=== PATIENT | male | born 1955 | race Caucasian/White ===

== ENCOUNTER 2022-10-13 14:50 | Outpatient (REF) | payer MEDICARE, SELFPAY ==
[2022-10-13 15:08] LABS: MANUAL DIFF FLAG NO
[2022-10-13 15:16] LABS: Basophils Percent Auto 0.4 % (0-2); Eosinophils Absolute Auto 0.2 X10*3/uL (0.0-0.4); Eosinophils Percent Auto 2.3 % (0-4); Hematocrit 45.8 % (42.0-52.0); Hemoglobin 15.1 g/dl (14.0-18.0); Imm Gran Abs Auto 0.03 X10*3/uL (0.00-0.03); Imm Gran Pct Auto 0.4 % (0.0-0.4); Lymphocytes Absolute Auto 1.6 X10*3/uL (1.2-4.9); Lymphocytes Percent Auto 22.1 % (20-40); Mean Corpuscular Hemoglobin 27.5 pg (27.0-33.0); Mean Corpuscular Volume 83.3 fL (80.0-98.0); Mean Platelet Volume 8.9 fL (9.4-12.4); Monocytes Absolute Auto 0.6 X10*3/uL (0.1-1.2); Monocytes Percent Auto 8.7 % (2-11); Neutrophils Absolute Auto 4.9 x10*3/uL (2.0-8.3); Neutrophils Percent Auto 66.1 % (45-73); Platelet Count 196 X10*3/uL (160-400); Red Cell Distribution Width 12.6 % (11.0-16.0); White Blood Count 7.4 X10*3/uL (4.8-10.8)
[2022-10-13 15:53] LABS: Erythrocyte Sedimentation Rate 9 MM/HR (0-15)
[2022-10-13 16:02] LABS: Alanine Aminotransferase 28 U/L (0-40); Albumin Level 4.5 g/dL (3.5-5.0); Alkaline Phosphatase 87 U/L (39-117); Anion Gap 13 (12-20); Aspartate Amino Transferase 19 U/L (5-37); Bilirubin Total 0.4 mg/dL (0.0-1.0); Blood Urea Nitrogen 20 mg/dL (9-16); Calcium 9.5 mg/dL (8.4-10.2); Carbon Dioxide 27 mmol/L (22-29); Chloride 102 mmol/L (96-108); Estimated Glomerular Filt Rate 55; Glucose Random 126 mg/dL (60-115); Potassium 4.7 mmol/L (3.3-5.1); Sodium 137 mmol/L (135-145); TSH reflex Free T4 3.25 uIU/mL (0.32-4.0); Total Protein 7.4 g/dL (6.5-8.0)
[2022-10-13 16:17] LABS: Vitamin B12 366 pg/mL (200-900)
[2022-10-14 08:30] LABS: Syphilis Screen Nonreactive (Nonreactive)
== END 2022-10-13 14:51 | disposition home or self-care (01) ==
LOC: HO.LAB 14:50
PROVIDERS: PCP Physician Assistant; Visit Provider Nurse Practitioner Family
DX: R41.3 Other amnesia (principal); E11.9 Type 2 diabetes mellitus without complications; I10 Essential (primary) hypertension; G47.33 Obstructive sleep apnea (adult) (pediatric)
CPT/HCPCS: 36415; 80053; 82607; 82746; 84443; 85025; 85652; 86780; 99202

== ENCOUNTER 2022-10-22 17:44 | Outpatient (REF) | payer MEDICARE, SELFPAY | END 2022-10-22 17:45 | disposition home or self-care (01) | LOC: HO.MRI 17:44 | PROVIDERS: Visit Provider Nurse Practitioner Family | DX: Z13.89 Encounter for screening for other disorder (principal) ==

== ENCOUNTER 2024-12-27 15:00 | Outpatient (AMB) | payer MEDICARE, SELFPAY ==
--- NOTE | 2024-12-27 15:21 | HO.NEPHOV ---
Vital Signs 12/27/24 15:23 Height 5 ft 6 in Weight 247 lb 8 oz BMI 39.9 BP 120/62 Blood Pressure Location Rt brachial Position Sitting Pulse 93 Pulse Source Pulse Oximeter Pulse Oximetry (%) 96 Oxygen Delivery Method Room Air Intake Visit Reasons: Previous patient/ Conf Needle Maker Required: No Accompanied by: Self / Same As Patient Allergies No Known Allergies Allergy (Verified 12/27/24 15:23) HPI Comments Details: I had the privilege of seeing Andrés in follow up of his acquired solitary kidney ( had left nephrectomy in 2019) on a back drop of hypertension and diabetes mellitus. His blood pressure is at goal on current medications. He has not lost any significant weight. He is not on Jardiance but not on any ACEI/ARB. He tries to maintain good hydration and avoids NSAID's if possible. He denies nausea, vomiting, diarrhea, SOB or edema. His last A1c was 9.0 with some proteinuria . His last serum creatinine was 1.27. There were no specific systemic complaints at the time of this office visit. [facility] Surgical History History of nephrectomy Family History Father Pancreatic cancer Social History Alcohol intake: current Patient Tobacco Use Status: Former Tobacco user Cigarette Packs Per Day: 0.50 Review of Systems Const All systems reviewed & are unremarkable except as noted in HPI and below Physical Exam Vital Signs: Last Vital Signs Pulse 93 12/27/24 15:23 BP 120/62 12/27/24 15:23 Pulse Ox 96 12/27/24 15:23 Oxygen Delivery Method Room Air 12/27/24 15:23 BMI result Body Mass Index 39.9 Const General: comfortable and no acute distress Orientation/consciousness: patient oriented x3 HEENT Head: Yes normocephalic Mouth: Normal oral and palatal mucosa present Eyes EOM: EOMs intact bilaterally Neck Neck: Yes supple Resp Auscultation: clear to auscultation bilaterally Cardio Jugular venous distension: no JVD Rate: regular rate GI Palpation (GI): Soft to palpation Auscultation: normal bowel sounds General: Yes no CVA tenderness Back/Spine/Pelvis Back: no CVA tenderness Skin General skin exam: no rashes or lesions noted Neuro General: patient oriented x3 and moves all extremities Extrem General: Yes no pedal edema Assessment & Plan Assessment & Plan (1) HTN (hypertension): Code(s): I10 - Essential (primary) hypertension Category: Medical Qualifiers: Hypertension type: primary hypertension Qualified Code(s): I10 - Essential (primary) hypertension (2) Solitary kidney, acquired: Code(s): Z90.5 - Acquired absence of kidney Category: Medical (3) Proteinuria: Code(s): R80.9 - Proteinuria, unspecified Category: Medical Qualifiers: Proteinuria type: other Qualified Code(s): R80.8 - Other proteinuria Plan He has acquired solitary kidney following nephrectomy in 2020. He needs to loose weight and needs to have better blood sugar control. He is not on any ACEI/ARB. He is at risk for hyperfiltration. I started him on Jardiance which I plan to maximize at next visit. If his serum creatinine and K permits and if there are no other contraindication, I plan to start him on ACEI at next visit. He should maintain good hydration and avoid NSAID's. Follow up blood work ordered. Orders: Orders Creatinine 3 Months I10 - Essential (primary) hypertension, Z90.5 - Acquired absence of kidney Blood Urea Nitrogen 3 Months I10 - Essential (primary) hypertension, Z90.5 - Acquired absence of kidney Hemoglobin A1c 3 Months I10 - Essential (primary) hypertension, Z90.5 - Acquired absence of kidney Electrolytes 3 Months I10 - Essential (primary) hypertension, Z90.5 - Acquired absence of kidney Medications: New empagliflozin (Jardiance) 10 mg PO DAILY 30 tabs 4RF cholecalciferol (vitamin D3) 50 mcg PO DAILY 30 caps 6RF Coding Level of Care Code Est Pt Level 4 (89442) Diagnoses Primary hypertension I10 Hypertension type: primary hypertension Solitary kidney, acquired Z90.5 Other proteinuria R80.8 Proteinuria type: other
[2024-12-27 15:23] VITALS: BP 120/62; PULSE 93; O2SAT 96; BMI 39.9
--- OUTSIDE RECORDS SUMMARY | 2024-12-27 16:09 | XMS_ITS | Encounter Summary ---
Author Organization [facility] Address [address] [facility] [address] [place] [address] Phone Care Team Providers Care Rim Turning Machine Operator Name Role Phone Stephanie Willoughby PA-C Primary Care Provider + Reason for Visit * Reason Comments Med Refill Encounter Details Date Type Department Care Team ([facility] st Contact Info) Description 05/14/2024 Refill [facility] [address] [facility] [address] [place] [phone] Fabrizio Driver MD [address] [facility] [address] [place] [phone] Hypertension; Acquired absence of kidney Social History Tobacco Use Types Packs/Day Years Used Date Smoking Tobacco: Former Smokeless Tobacco: Never Alcohol Use Standard Drinks/Week Comments Yes 0 (1 standard drink = 0.6 oz pur e alcohol) Sex and Gender Information Value Date Recorded Sex Assigned at Not on file Legal Sex Male 4:59 PM EST Gender Identity Not on file Sexual Orientation Not on file documented as of this encounter Plan of Treatment Not on file documented as of this encounter Visit Diagnoses Diagnosis Hypertension Acquired absence of kidney documented in this encounter Care Teams Rim Turning Machine Operator Relationship Specialty Start Date End Date Stephanie Willoughby PA-C [address] [place] [address] PCP - General Physician Hardwood Sawyer 01/09/21 documented as of this encounter
--- OUTSIDE RECORDS SUMMARY | 2024-12-27 16:09 | XMS_ITS | Encounter Summary ---
Author Organization [facility] Address [address] [place] [address] Care Team Providers Care Automation Controls Engineer Name Role Phone Stephanie Willoughby Primary Care Provider + Reason for Visit * Reason Comments Pain Encounter Details Date Type Department Care Team (Late st Contact Info) Description 12/21/2024 3:30 PM EST Office Visit Orthopedic Surgery - [place] [address] [facility] [address] [place] [phone] Radha Serrano PA [address] [address] [place] [phone] Left carpal tunnel syndrome (Primary Dx); Mallet finger of right hand; Arthritis of right hand Social History Tobacco Use Types Packs/Day Years Used Date Smoking Tobacco: Former Cigarettes Q uit: 11/15/1999 Smokeless Tobacco: Never Alcohol Use Standard Drinks/Week Comments Yes 0 (1 standard drink = 0.6 oz pur e alcohol) Sex and Gender Information Value Date Recorded Sex Assigned at Not on file Legal Sex Male 6:57 PM EST Gender Identity Not on file Sexual Orientation Not on file documented as of this encounter Progress Notes * SAVITA Spears - 12/21/2024 3:30 PM EST CHIEF COMPLAINT: Pain of the Right Middle Finger had concerns including Pain of the Right Middle Finger. IDENTIFIER: Marco Zavaleta is a 69 y.o. old male SUBJECTIVE: Marco Zavaleta is here for follow up on 08/20/2025 for right long finger pain after injury 2 to 3 weeks ago, right hand pain and stiffness, and left hand numbness tingling and pain. Patient has had right carpal tunnel surgery and right long finger A1 madhuri release with Dr. De Leon in 2022. He is doing okay there. He does report some mild residual numbness at the radial side of the right ring finger. The biggest issue has been some stiffness and pain in his hands in the morning worse on the right side for that ongoing for the past couple months. Then about 2 to 3 weeks ago he fell and jammed hisright long finger with a resultant mallet deformity. He tried a little AlumaFoam brace. He is having mild pain in that area. He also has been having increased numbness tingling in the left hand thumbindex and long finger that can be pretty constant. Is not waking him up at night. She has had no treatment for this as far as bracing cortisone injections or surgery. He does have diabetes and his last hemoglobin A1c a couple weeks ago was 9. PAST MEDICAL/SURGICAL HISTORY: Patient Active Problem List Diagnosis Date Noted Tear of biceps tendon 10/06/2024 Right carpal tunnel syndrome 05/05/2022 Trigger middle finger of right hand 05/05/2022 Carpal tunnel syndrome on both sides 08/20/2020 Renal cell carcinoma, left ([facility]) 08/12/2020 Neck pain 11/27/2019 Tear of biceps muscle 05/09/2019 Benign localized hyperplasia of prostate with urinary obstruction 07/02/2017 BPH associated with nocturia 07/02/2017 GERD (gastroesophageal reflux disease) 07/02/2017 Hyperlipidemia 07/02/2017 Hypertension 07/02/2017 Obstructive sleep apnea 07/02/2017 Type 2 diabetes mellitus without complication ([facility]) 07/02/2017 DM type 2 (diabetes mellitus, type 2) ([facility]) 07/02/2017 Arthritis 04/22/2016 Herpes simplex type 1 infection 04/22/2016 Eczema 05/30/2013 Past Surgical History: Procedure Laterality Date NEPHRECTOMY Left 11/01/2020 PROCEDURE: HISTORICAL NEPHRECTOMY; COMMENT: due renal cell carcinoma - Dr. Hampton OTHER SURGICAL HISTORY Left 08/12/2020 PROCEDURE: CT RENAL BIOPSY PRQ TROCAR/NEEDLE; COMMENT: most likely renal cell carcinoma MEDICATIONS DISCONTINUED/REORDERED: There are no discontinued medications. ACTIVE MEDICATIONS: Outpatient Medications Marked as Taking for the 12/21/24 encounter (Office Visit) with SAVITA Spears Medication Sig Dispense Refill amLODIPine (NORVASC) 5 mg tablet TAKE 1 TABLET BY MOUTH EVERY DAY 90 tablet 3 atorvastatin (LIPITOR) 20 mg tablet Take 1 tablet (20 mg total) by mouth 1 (one) time each day. FREESTYLE LANCETS MISC 1 Each by Does not apply route 2 times daily. glipiZIDE (GLUCOTROL XL) 5 mg 24 hr tablet Take 1 tablet (5 mg total) by mouth 1 (one) time each day. tamsulosin (FLOMAX) 0.4 mg 24 hr capsule Take 1 Capsule by mouth daily. Take 30 mins after same meal every day. ALLERGIES: No Known Allergies PHYSICAL EXAM: Visit Vitals Smoking Status Former APPEARANCE: Alert and in no acute distress EYES: conjunctivae and sclerae normal EXTREMITIES: Extremities warm and well perfused without clubbing, cyanosis, or edema Left hand mild thenar wasting. 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 Hehad a positive Tinel's, Phalen's and Durkan's test on the left. He can make a light fist. Hypothenar, thenar interosseous musculature intact. On the right he has diffuse arthritic changes at metacarpal phalangeal joints PIP and DIP joints ofall fingers. He can make a light fist, there is some mild stiffness. No rebecca triggering. Mild tenderness to palpation over A1 madhuri of right small and index finger. He does have Dupuytren's nodules and slight pitting at the palm of the hand the axis of the long and ring finger. But no contracture. Right long finger he has Heberden's nodules but also a flexion deformity at the DIP joint that can be passively corrected to neutral. VASCULAR:well perfused with normal pulses in the distal extremities and no peripheral edema noted NEURO: Awake, alert and oriented SKIN: Skin color, texture, turgor normal. No rashes or lesions. PSYCH: does not appear depressed or anxious and oriented to time, place and person LABS/IMAGING: Lab Results Component Value Date HGBA1C 9.0 (H) 12/11/2024 Xrays reviewed: X-rays reviewed of the right hand in March 2024 showed diffuse moderate arthritic changes at metacarpal phalangeal joints, PIP joints and DIP joints of all fingers on the right. As wellas moderate to severe right thumb basal joint arthritis. Did get an x-ray of the right long finger today to check for bony mallet. XR Fingers 2+ Views Right Date of Visit: 12/21/2024 Reason for visit: Right long finger injury Views: AP, lateral oblique right long finger Comparison: Previous x-rays of the right hand done last year. Findings: Right long finger on the lateral there is an avulsion fragment seen off the dorsum of the DIP joint consistent with bony mallet. Mild flexion deformity Impression: Right bony mallet middle finger IMPRESSION: No diagnosis found. PLAN: The details of the visit were reviewed with the patient. Pertinent history, and objective findings were reviewed, along with the diagnoses: Left carpal tunnel syndrome. I discussed with patient treatment options for carpal tunnel. Discussed bracing cortisone injections and lastly surgery. He does wish to consider surgery but I did state to hold off to get his hemoglobin A1c down to under 8. Because of the high blood sugar also decided to hold off on cortisone injection today. This provided witha left carpal tunnel brace. I will see him back in 2 months time for clinical recheck if he has nothad a repeat hemoglobin A1c we will get labs to see where his blood sugars are at. When he gets down to under [address] De Leon about starting scheduling process for left carpal tunnel release. For the right hand arthritis I did discuss conservative treatment with Tylenol topical creams heat and exercises. He cannot take NSAIDs due to his kidneys. Far as the right long finger bony mallet I discussed conservative treatment splinting and if it wasstill painful could consider DIP joint fusion. He is having minimal pain therefore no further treatment for the mallet finger. Also patient back in 2 months time. Marco Zavaleta acknowledges understanding of the above plan and agrees to follow recommendations and/or take medications as prescribed. No orders of the defined types were placed in this encounter. @ELECSIG@ documented in this encounter Plan of Treatment Upcoming Encounters Date Type Department Care Team (Late st Contact Info) Description 01/16/2025 3:00 PM EST Office Visit Internal Medicine - [place] [address] [place] [address] Stephanie Willoughby PA [address] [place] [address] 02/19/2025 3:00 PM EDT Office Visit Orthopedic Surgery - [place] [address] [facility] [address] [place] [phone] Radha Serrano PA [address] [facility] [address] [place] [phone] documented as of this encounter Visit Diagnoses Diagnosis Left carpal tunnel syndrome- Primary Carpal tunnel syndrome Mallet finger of right hand Arthritis of right hand documented in this encounter Care Teams Automation Controls Engineer Relationship Specialty Start Date End Date Stephanie Willoughby PA [address] [facility] [address] [place] [address] PCP - General Primary Care 12/11/24 documented as of this encounter
--- OUTSIDE RECORDS SUMMARY | 2024-12-27 16:09 | XMS_ITS | Clinical Summary ---
Author Organization [facility] Address [address] [phone] Phone Care Team Providers Care Installation Manager Name Role Phone Stephanie Willoughby PA-C Primary Care Provider + Allergies No known active allergies Medications atorvastatin (LIPITOR) 20 MG tablet Take 20 mg by mouth 1 (one) time each day Active tamsulosin (FLOMAX) 0.4 MG 24 hr capsule if needed 08/21/2022 Activ e amLODIPine (NORVASC) 5 MG tablet TAKE 1 TABLET BY MOUTH 1 TIME EACH DAY. 90 tablet 3 11/22/2022 Active glipiZIDE (GLUCOTROL XL) 5 MG 24 hr tabletIndication s:Hypertension,A cquired absence of kidney TAKE 1 TABLET BY MOUTH 1 TIME EACH DAY. 90 tablet 1 08/20/2024 Active Active Problems Problem Noted Date Diagnosed Date Acquired absence of kidney 01/09/2021 Hypertension 01/09/2021 History of radical nephrectomy 01/09/2021 Encounters Date Type Department Care Team Description 12/11/2024 Orders Only [facility]. [address] [phone] Fabrizio Driver MD from Last 3 Months Family History Medical History Relation Comments Cancer Father Diabetes Mother Relation Status Comments Father Mother Social History Tobacco Use Types Packs/Day Years Used Date Smoking Tobacco: Former Smokeless Tobacco: Never Tobacco Cessation:Counseling Given: Not Answered Alcohol Use Standard Drinks/Week Comments Yes 0 (1 standard drink = 0.6 oz pur e alcohol) Sex and Gender Information Value Date Recorded Sex Assigned at Not on file Legal Sex Male 4:59 PM EST Gender Identity Not on file Sexual Orientation Not on file Last Filed Vital Signs Vital Sign Reading Time Taken Comments Blood Pressure 126/70 12/24/2023 8:33 AM EST Pulse 75 12/24/2023 8:33 AM EST Temperature - - Respiratory Rate - - Oxygen Saturation 94% 12/24/2023 8:33 AM EST Inhaled Oxygen Concentration - - Weight 111 kg (245 lb) 12/24/2023 8:33 AM EST Height - - Body Mass Index - - Plan of Treatment Health Maintenance Due Date Last Done Comments Pneumococcal Vaccine: 65+ Years (1 of 2 - PCV) 1961 Colorectal Cancer Screening: Annual FOBT 2004 Colorectal Cancer Screening: Colonoscopy 2004 Colorectal Cancer Screening: Sigmoidoscopy 2004 Influenza Vaccine (#1) 2024 , 07/24/2023, 08/21/2019, Additional history exists Diabetes: Ophthalmology Exam 12/21/2024 Diabetes: Pedal Pulse Checked 12/21/2024 Diabetes: Sensory Foot Exam 12/21/2024 Diabetes: Visual Foot Exam 12/21/2024 Diabetes: Hemoglobin A1C 03/11/2025 12/11/2024, 11/16 Hepatitis B Vaccine Aged Out No longe r eligible based on patient's age to complete this topic Procedures Procedure Name Priority Date/Time Associated Diagnosis Comments HEMOGLOBIN A1C Routine 12/11/2024 3:25 PM EST PTH, INTACT Routine 12/11/2024 3:25 PM EST VITAMIN D 25 HYDROXY Routine 12/11/2024 3:25 PM EST RENAL FUNCTION PANEL Routine 12/11/2024 3:25 PM EST URIC ACID Routine 12/11/2024 3:25 PM EST URINE ALBUMIN / CREATININE RATIO Routine 12/11/2024 3:25 PM EST PROTEIN / CREATININE RATIO, URINE Routine 12/11/2024 3:25 PM EST CBC Routine 12/11/2024 3:25 PM EST from Last 3 Months Results * (ABNORMAL) Protein, Total, Random Urine w/Creatinine (Protein/Creat Ratio) (12/11/2024 3:25 PM EST) Protein, Ur 32 mg/dL [facility] Urine Protein/Creati nine Ratio 0.22(H) <=0.20 mg/mg creat [facility] Creatinine, Urine 143.0 mg/dL [facility] 12/11/2024 3:25 PM EST 12/11/2024 6:36 PM EST us Fabrizio Driver MD LAB URINE ORDERABLES Final Result Performing Organization Address [facility] Co de Phone Number [facility] [address] [place] [address] * (ABNORMAL) Urine Albumin / Creatinine Ratio (12/11/2024 3:25 PM EST) Creatinine, Urine 143.0 mg/dL [facility] Microalbumin Urine Random 62.1(H) 0.0 - 29.0 mg/L [facility] Microalbumin/Cre atinine Ratio 43(H) <30 mg/g creat [facility] 12/11/2024 3:25 PM EST 12/11/2024 6:36 PM EST us Fabrizio Driver MD LAB URINE ORDERABLES Final Result Performing Organization Address City/[facility]/ZIP Co de Phone Number [facility] [address] [place] [address] * (ABNORMAL) Vitamin D 25 Hydroxy (12/11/2024 3:25 PM EST) Vitamin D, 25-OH, Total 18.7(L) 30.0 - 80.0 ng/mL [facility] 12/11/2024 3:25 PM EST 12/11/2024 6:36 PM EST us Fabrizio Driver MD LAB BLOOD ORDERABLES Final Result [facility] [address] [place] [address] * CBC (12/11/2024 3:25 PM EST) WBC 8.7 4.8 - 10.8 K/[facility] RBC 5.50 4.50 - 5.50 M/[facility] Hgb 14.9 13.5 - 17.5 g/dL [facility] Hematocrit 45.0 42.0 - 54.0 % [facility] MCV 82.6 79.0 - 98.0 FL [facility] MCH 27.3 27.0 - 32.0 pcg [facility] MCHC 33.1 32.0 - 37.0 g/dL [facility] RDW 12.3 11.0 - 15.0 % [facility] Platelets 207 130 - 400 K/[facility] MPV 9.8 7.0 - 11.0 FL [facility] nRBC Count 0.0 <1.0 % [facility] NRBC Absolute 0.00 <0.10 K/[facility] 12/11/2024 3:25 PM EST 12/11/2024 6:38 PM EST us Fabrizio Driver MD LAB BLOOD ORDERABLES Final Result Performing Organization Address [facility] Co de Phone Number [facility] [address] [place] [address] * Uric Acid (12/11/2024 3:25 PM EST) Uric Acid 3.7 3.7 - 9.2 mg/dL [facility] 12/11/2024 3:25 PM EST 12/11/2024 6:36 PM EST us Fabrizio Driver MD LAB BLOOD ORDERABLES Final Result Performing Organization Address [facility] de Phone Number [facility] [address] [place] [address] * PTH, Intact (12/11/2024 3:25 PM EST) Pathologist [facility] PTH 56.8 18.5 - 88.0 pcg/mL [facility] 12/11/2024 3:25 PM EST 12/11/2024 6:36 PM EST us Fabrizio Driver MD LAB BLOOD ORDERABLES Final Result Performing Organization Address [facility] Co de Phone Number [facility] [address] [place] [address] * (ABNORMAL) Hemoglobin A1c (12/11/2024 3:25 PM EST) Hemoglobin A1C 9.0(H) <6.5 % [facility] Estimated Average Glucose 212 mg/dL [facility] 12/11/2024 3:25 PM EST 12/11/2024 6:38 PM EST us Fabrizio Driver MD LAB BLOOD ORDERABLES Final Result Performing Organization Address City/[facility]/ZIP Co de Phone Number [facility] [address] [place] [address] * (ABNORMAL) Renal Function Panel (12/11/2024 3:25 PM EST) Sodium 133 133 - 145 mmol/L [facility] Potassium 3.8 3.5 - 5.5 mmol/L [facility] Chloride 99 96 - 110 mmol/L [facility] Bicarbonate (CO2) 29 21 - 32 mmol/L [facility] Anion Gap 5 3 - 11 [facility] Glucose 225(H) 70 - 100 mg/dL [facility] BUN 21 5 - 25 mg/dL [facility] Creatinine Serum 1.27 0.70 - 1.30 mg/dL [facility] eGFR 61 >=60 mL/min/1. 73m2 [facility] Comment:Calculation based on the?Chronic Kidney Disease Epidemiology Collaboration (CKD-EPI) equation refit?without adjustment for race. BUN/Creatinine Ratio 16.5 [facility] Albumin 4.0 3.2 - 5.0 g/dL [facility] Calcium 8.9 8.5 - 10.5 mg/dL [facility] Phosphorus 3.0 2.5 - 4.5 mg/dL [facility] 12/11/2024 3:25 PM EST 12/11/2024 6:36 PM EST us Fabrizio Driver MD LAB BLOOD ORDERABLES Final Result [facility] [address] [place] [address] from Last 3 Months Insurance MEDICARE [facility] MEDICARE [facility] Care Teams Installation Manager Relationship Specialty Start Date End Date Stephanie Willoughby PA-C [facility] [place] [address] PCP - General Physician Demi Chef 01/09/21
--- OUTSIDE RECORDS SUMMARY | 2024-12-27 16:10 | XMS_ITS | Encounter Summary ---
Author Organization [facility] Address [address] [place] [address] Phone Care Team Providers Care Nutritional Services Director Name Role Phone Stephanie Willoughby PA-C Primary Care Provider + Reason for Visit * Reason Comments Med Refill Encounter Details Date Type Department Care Team (Late st Contact Info) Description 07/01/2023 Refill [facility] [address] [place] [phone] Ronnell Dinero MD Social History Tobacco Use Types Packs/Day Years [...] documented as of this encounter Visit Diagnoses Not on filedocumented in this encounter Care Teams Nutritional Services Director Relationship Specialty Start Date End Date Stephanie Willoughby PA-C [address] [place] [address] PCP - General Physician Retail Maintenance Technician 01/09/21 documented as of this encounter
--- OUTSIDE RECORDS SUMMARY | 2024-12-27 16:10 | XMS_ITS | Encounter Summary ---
Author Organization [facility] Address [address] [place] [address] Phone Care Team Providers Care Funeral Pre Arrangement Counselor Name Role Phone Stephanie Willoughby PA-C Primary Care Provider + Reason for Visit * Reason Comments Med Refill Encounter Details Date Type Department Care Team (Late st Contact Info) Description 11/19/2022 Refill [facility] [address] [place] [phone] Ronnell Dinero MD Social History Tobacco Use [...] on filedocumented in this encounter Care Teams Funeral Pre Arrangement Counselor Relationship Specialty Start Date End Date Stephanie Willoughby PA-C [address] [place] [address] PCP - General Physician Occupational Medicine Specialist 01/09/21 documented as of this encounter
--- OUTSIDE RECORDS SUMMARY | 2024-12-27 16:10 | XMS_ITS | Encounter Summary ---
Author Organization [facility] Address [address] [phone] Phone Care Team Providers Care Meteorology Faculty Member Name Role Phone Stephanie Willoughby PA-C Primary Care Provider + Encounter Details Date Type Department Care Team (Late st Contact Info) Description 12/11/2024 Orders Only [facility] [address] [phone] Fabrizio Driver MD [address] [phone] Social History Tobacco Use Types Packs/Day Years [...] on file documented as of this encounter Procedures Procedure Name Priority Date/Time Associated Diagnosis Comments PROTEIN / CREATININE RATIO, URINE Routine 12/11/2024 3:25 PM EST URINE ALBUMIN / CREATININE RATIO Routine 12/11/2024 3:25 PM EST VITAMIN D 25 HYDROXY Routine 12/11/2024 3:25 PM EST CBC Routine 12/11/2024 3:25 PM EST URIC ACID Routine 12/11/2024 3:25 PM EST PTH, INTACT Routine 12/11/2024 3:25 PM EST HEMOGLOBIN A1C Routine 12/11/2024 3:25 PM EST RENAL FUNCTION PANEL Routine 12/11/2024 3:25 PM EST documented in this encounter Results * (ABNORMAL) Hemoglobin A1c (12/11/2024 3:25 PM EST) Hemoglobin A1C 9.0(H) <6.5 % [facility] Estimated Average Glucose 212 mg/dL [facility] 12/11/2024 3:25 PM EST 12/11/2024 6:38 PM EST Fabrizio Driver MD LAB BLOOD ORDERABLES Final Result Performing Organization Address City/[facility]/ZIP Co de Phone Number [facility] [address] [place] [address] * PTH, Intact (12/11/2024 3:25 PM EST) Pathologist [facility] PTH 56.8 18.5 - 88.0 pcg/mL [facility] 12/11/2024 3:25 PM EST 12/11/2024 6:36 PM EST Fabrizio Driver MD LAB BLOOD ORDERABLES Final Result [facility] [address] [place] [address] * (ABNORMAL) Vitamin D 25 Hydroxy (12/11/2024 3:25 PM EST) Vitamin D, 25-OH, Total 18.7(L) 30.0 - 80.0 ng/mL [facility] 12/11/2024 3:25 PM EST 12/11/2024 6:36 PM EST Fabrizio Driver MD LAB BLOOD ORDERABLES Final Result [facility] [address] [place] [address] * (ABNORMAL) Renal Function Panel (12/11/2024 3:25 PM EST) Sodium 133 133 - 145 mmol/L [facility] Potassium 3.8 3.5 - 5.5 mmol/L [facility] Chloride 99 96 - 110 mmol/L [facility] Bicarbonate (CO2) 29 21 - 32 mmol/L [facility] Anion Gap 5 3 - 11 [facility] Glucose 225(H) 70 - 100 mg/dL [facility] BUN 21 5 - 25 mg/dL [facility] Creatinine Serum 1.27 0.70 - 1.30 mg/dL [facility] eGFR 61 >=60 mL/min/1. 73m2 [facility] Comment:Calculation based on the?Chronic Kidney Disease Epidemiology Collaboration (CKD-EPI) equation refit?without adjustment for race. BUN/Creatinine Ratio 16.5 [facility] Albumin 4.0 3.2 - 5.0 g/dL [facility] Calcium 8.9 8.5 - 10.5 mg/dL [facility] Phosphorus 3.0 2.5 - 4.5 mg/dL [facility] 12/11/2024 3:25 PM EST 12/11/2024 6:36 PM EST Fabrizio Driver MD LAB BLOOD ORDERABLES Final Result Performing Organization Address City/[facility]/ZIP Co de Phone Number [facility] [address] [place] [address] * Uric Acid (12/11/2024 3:25 PM EST) Uric Acid 3.7 3.7 - 9.2 mg/dL [facility] 12/11/2024 3:25 PM EST 12/11/2024 6:36 PM EST Fabrizio Driver MD LAB BLOOD ORDERABLES Final Result Performing Organization Address [facility] Co de Phone Number [facility] [address] [place] [address] * (ABNORMAL) Urine Albumin / Creatinine Ratio (12/11/2024 3:25 PM EST) Creatinine, Urine 143.0 mg/dL [facility] Microalbumin Urine Random 62.1(H) 0.0 - 29.0 mg/L [facility] Microalbumin/Cre atinine Ratio 43(H) <30 mg/g creat [facility] 12/11/2024 3:25 PM EST 12/11/2024 6:36 PM EST Fabrizio Driver MD LAB URINE ORDERABLES Final Result Performing Organization Address [facility] Co de Phone Number [facility] [address] [place] [address] * (ABNORMAL) Protein, Total, Random Urine w/Creatinine (Protein/Creat Ratio) (12/11/2024 3:25 PM EST) Protein, Ur 32 mg/dL [facility] Urine Protein/Creati nine Ratio 0.22(H) <=0.20 mg/mg creat [facility] Creatinine, Urine 143.0 mg/dL [facility] 12/11/2024 3:25 PM EST 12/11/2024 6:36 PM EST us Fabrizio Driver MD LAB URINE ORDERABLES Final Result [facility] [address] [place] [address] * CBC (12/11/2024 3:25 PM EST) WBC 8.7 4.8 - 10.8 K/[facility] RBC 5.50 4.50 - 5.50 M/[facility] Hgb 14.9 13.5 - 17.5 g/dL [facility] Hematocrit 45.0 42.0 - 54.0 % [facility] MCV 82.6 79.0 - 98.0 FL [facility] MCH 27.3 27.0 - 32.0 pcg [facility] MCHC 33.1 32.0 - 37.0 g/dL [facility] RDW 12.3 11.0 - 15.0 % [facility] Platelets 207 130 - 400 K/[facility] MPV 9.8 7.0 - 11.0 FL [facility] nRBC Count 0.0 <1.0 % [facility] NRBC Absolute 0.00 <0.10 K/[facility] 12/11/2024 3:25 PM EST 12/11/2024 6:38 PM EST us Fabrizio Driver MD LAB BLOOD ORDERABLES Final Result [facility] [address] [place] [address] documented in this encounter Visit Diagnoses Not on filedocumented in this encounter Care Teams Meteorology Faculty Member Relationship Specialty Start Date End Date Stephanie Willoughby PA-C [address] [place] [address] PCP - General Physician Hooker Inspector 01/09/21 documented as of this encounter
--- OUTSIDE RECORDS SUMMARY | 2024-12-27 16:10 | XMS_ITS | Clinical Summary ---
Author Organization [facility] Address [address] [place] [address] Phone Care Team Providers Care Acid Dipper Name Role Phone Stephanie Willoughby Primary Care Provider + Allergies No known active allergies Medications fluticasone propionate (FLONASE) 50 mcg/actuation nasal spray SPRAY 2 SPRAYS INTO EACH NOSTRIL EVERY DAY 16 mL 2 4 Active amLODIPine (NORVASC) 5 mg tablet TAKE 1 TABLET BY MOUTH EVERY DAY 90 tablet 3 4 Active CALCIUM CARBONATE ORAL Take 1 Tablet by mouth 2 times daily. 3 Active FREESTYLE LANCETS MISC 1 Each by Does not apply route 2 times daily. 9 Active blood sugar diagnostic (FreeStyle Lite Strips) test strip 1 Strip by In Vitro route 2 times daily. 9 Active blood-glucose meter kit 1 Kit by Does not apply route daily. 1 Active atorvastatin (LIPITOR) 20 mg tablet Take 1 tablet (20 mg total) by mouth 1 (one) time each day. 4 Active diclofenac (VOLTAREN) 1 % topical gel Apply 1 g topically 3 times daily. 3 Active tamsulosin (FLOMAX) 0.4 mg 24 hr capsule Take 1 Capsule by mouth daily. Take 30 mins after same meal every day. 4 Active glipiZIDE (GLUCOTROL XL) 5 mg 24 hr tablet Take 1 tablet (5 mg total) by mouth 1 (one) time each day. 3 Active Active Problems Problem Noted Date Diagnosed Date Tear of biceps tendon 10/06/2024 Right carpal tunnel syndrome 05/05/2022 Trigger middle finger of right hand 05/05/2022 Carpal tunnel syndrome on both sides 08/20/2020 Renal cell carcinoma, left 08/12/2020 Overview (10/06/2024): bx 08/12/20, left nephrectomy 11/01/20 Dr. Hampton Neck pain 11/27/2019 Tear of biceps muscle 05/09/2019 Benign localized hyperplasia of prostate with urinary obstruction 07/02/2017 BPH associated with nocturia 07/02/2017 GERD (gastroesophageal reflux disease) 7 Hyperlipidemia 07/02/2017 Hypertension 07/02/2017 Obstructive sleep apnea 07/02/2017 Type 2 diabetes mellitus without complication DM type 2 (diabetes mellitus, type 2) 07/02/2017 Arthritis 04/22/2016 Herpes simplex type 1 infection 04/22/2016 Eczema 05/30/2013 Encounters Date Type Department Care Team Description 12/21/2024 3:30 PM EST Office Visit Orthopedic Surgery - [address] [place] [phone] Radha Serrano, PA Left carpal tunnel syndrome (Primary Dx); Mallet finger of right hand; Arthritis of right hand from Last 3 Months Immunizations Name Administration Dates Next Due Influenza Quadravalent, 0.5ml (Fluad) 65yo and o lder 07/25/2023 Influenza Quadravalent, 0.5m l (Fluzone High-dose) 65yo and older 08/27/2022 Influenza Quadravalent, MDCK , 0.5ml, preservative free (Flucelvax) 6mo and older 08/21/2019,12/03/2017 Influenza, Unspecified 07/24/2023 Pfizer SARS-CoV-2 COVID-19, mRNA, LNP-S, preservative free 07/24/2023 Pneumococcal conjugate 20 va lent (Prevnar 20, PCV 20) 2mo and older 08/03/2023 Surgical History Surgery Date Site/Laterality Comments OTHER SURGICAL HISTORY 08/12/2020 Left PROCEDURE: SC RENAL BIOPSY PRQ TROCAR/NEEDLE; COMMENT: most likely renal cell carcinoma NEPHRECTOMY 11/01/2020 Left PROCEDURE: HISTORICAL NEPHRECTOMY; COMMENT: due renal cell carcinoma - Dr. Hampton Medical History Medical History Date Comments Arthritis 04/22/2016 DX:Arthritis Eczema 05/30/2013 DX:Eczema GERD (gastroesophageal reflux disease) DX:GERD (gastroesophageal reflux disease) Herpes simplex type 1 infection 04/22/2016 DX:Herpes simplex type 1 infection Hyperlipidemia 07/02/2017 DX:Hyperlipidemi a Hypertension 07/02/2017 DX:Hypertension Obstructive sleep apnea 07/02/2017 DX:Obstr uctive sleep apnea Tear of biceps tendon DX:Tear of biceps tendon BPH associated with nocturia 07/02/2017 DX: BPH associated with nocturia DM type 2 (diabetes mellitus , type 2) ([facility]) 07/02/2017 DX:DM type 2 (diabetes melli tus, type 2) ([facility]) Renal cell carcinoma, left ([facility]) 08/12/2020 DX:Renal cell carcinoma, left ([facility]); COMMENT: bx 08/12/20, left nephrectomy 11/01/20 Dr. Hampton Morbid obesity with BMI of 4 5.0-49.9, adult ([facility]) DX:Morbid obesity with BMI o f 45.0-49.9, adult ([facility]) Family History Medical History Relation Name Comments Other: pancreatic cancer Father Pancreatic cancer Father Relation Name Status Comments Father (Age 92) Mother Alive Social History Tobacco Use Types Packs/Day Years [...] on file Sexual Orientation Not on file Obstetrics History Last Filed Vital Signs Vital Sign Reading Time Taken Comments Blood Pressure 130/68 08/28/2024 3:52 PM EDT Sit ting L Arm Pulse 90 08/28/2024 3:52 PM EDT Temperature - - Respiratory Rate - - Oxygen Saturation - - Inhaled Oxygen Concentration - - Weight 110 kg (243 lb) 08/28/2024 3:52 PM EDT Height 167.6 cm (5' 6 ) 08/28/2024 3:52 PM EDT Body Mass Index 39.22 08/28/2024 3:52 PM EDT Plan of Treatment Upcoming Encounters Date Type Department Care Team (Late st Contact Info) Description 01/16/2025 3:00 PM EST Office Visit Internal Medicine - [place] [address] [place] [phone] Stephanie Willoughby PA [address] [facility] [address] [place] [address] 02/19/2025 3:00 PM EDT Office Visit Orthopedic Surgery - [place] [address] [place] [phone] Radha Serrano PA 174 [facility] [address] [place] [phone] Health Maintenance Due Date Last Done Comments Diabetes: Annual Foot Exam 1965 Diabetes: Annual Retina Eye Exam 1965 Zoster Vaccines (1 of 2) 1974 RSV Immunization Patients 60+ Years Old (1 - Risk 60-74 years 1-dose series) 2015 Colorectal Cancer Screening: Colonoscopy 10/24/2022 Depression Screening 10/24/2022 Falls Risk Assessment 10/24/2022 Hepatitis C Screening 10/24/2022 Medicare Annual Wellness Visit 10/24/2022 Social Influencers of Health Screening 10/24/2022 COVID-19 Vaccine ( season) 2024 07/25/2023, 07/24/2023, 08/27/2022, Additional history exists Influenza Vaccine (#1) 2024 , 07/24/2023, 08/27/2022, Additional history exists Diabetes: Blood Sugar Control Test (HGBA1C) 06/10/2025 12/11/2024, 12/11/2024, 12/11/2024, Additional history exists Diabetes: Annual Urine Albumin-Creatinine Ratio (uACR) 12/11/2025 12/11/2024, 12/11/2024, 07/28/2022 Diabetes: Annual GFR (Glomerular Filtration Rate) 12/11/2025 12/11/2024, 07/28/2022 Hypertension/CHF/CAD Annual BMP Blood Test 12/11/2025 12/11/2024, 07/28/2022 Cholesterol Screening (Lipid Panel) 07/28/2027 07/28/2022 DTaP,Tdap,and Td Vaccines (2 - Td or Tdap) 05/17/2032 05/17/2022 Pneumococcal Vaccine: 50+ Years Completed 08/03/2023 Abdominal Aortic Aneurysm (AAA) Screen Completed 11/22/2023 HIB Vaccines Aged Out No longer eligi ble based on patient's age to complete this topic HPV Vaccines Aged Out No longer eligi ble based on patient's age to complete this topic Hepatitis A Vaccines Aged Out No long er eligible based on patient's age to complete this topic Hepatitis B Vaccines Aged Out No long er eligible based on patient's age to complete this topic IPV Vaccines Aged Out No longer eligi ble based on patient's age to complete this topic MMR Vaccines Aged Out No longer eligi ble based on patient's age to complete this topic Meningococcal ACWY Vaccine Aged Out N o longer eligible based on patient's age to complete this topic RSV Immunization Patients Under 20 months Aged Out No longer eligible based on patient's age to complete this topic Varicella Vaccines Aged Out No longer eligible based on patient's age to complete this topic Procedures Procedure Name Priority Date/Time Associated Diagnosis Comments XR FINGERS 2+ VIEWS RIGHT Routine 12/21/2024 4:02 PM EST Pain VITAMIN D 25 HYDROXY Routine 12/11/2024 3:25 PM EST Hypertension Benign localized hyperplasia of prostate with urinary obstruction Type 2 diabetes mellitus without complication (CMS/HCC) DM type 2 (diabetes mellitus, type 2) (CMS/HCC) Renal cell carcinoma, left (CMS/HCC) MICROALBUMIN CREATININE URINE RATIO Routine 12/11/2024 3:25 PM EST Hypertension Benign localized hyperplasia of prostate with urinary obstruction Type 2 diabetes mellitus without complication (CMS/HCC) DM type 2 (diabetes mellitus, type 2) (CMS/HCC) Renal cell carcinoma, left (CMS/HCC) PROTEIN AND CREATININE WITH RATIO, URINE Routine 12/11/2024 3:25 PM EST Hypertension Benign localized hyperplasia of prostate with urinary obstruction Type 2 diabetes mellitus without complication (CMS/HCC) DM type 2 (diabetes mellitus, type 2) (CMS/HCC) Renal cell carcinoma, left (CMS/HCC) URIC ACID Routine 12/11/2024 3:25 PM EST Hypertension Benign localized hyperplasia of prostate with urinary obstruction Type 2 diabetes mellitus without complication (CMS/HCC) DM type 2 (diabetes mellitus, type 2) (CMS/HCC) Renal cell carcinoma, left (CMS/HCC) RENAL FUNCTION PANEL Routine 12/11/2024 3:25 PM EST Hypertension Benign localized hyperplasia of prostate with urinary obstruction Type 2 diabetes mellitus without complication (CMS/HCC) DM type 2 (diabetes mellitus, type 2) (CMS/HCC) Renal cell carcinoma, left (CMS/HCC) PARATHYROID HORMONE INTACT Routine 12/11/2024 3:25 PM EST Hypertension Benign localized hyperplasia of prostate with urinary obstruction Type 2 diabetes mellitus without complication (CMS/HCC) DM type 2 (diabetes mellitus, type 2) (CMS/HCC) Renal cell carcinoma, left (CMS/HCC) COMPLETE BLOOD COUNT Routine 12/11/2024 3:25 PM EST Hypertension Benign localized hyperplasia of prostate with urinary obstruction Type 2 diabetes mellitus without complication (CMS/HCC) DM type 2 (diabetes mellitus, type 2) (CMS/HCC) Renal cell carcinoma, left (CMS/HCC) HEMOGLOBIN A1C Routine 12/11/2024 3:25 PM EST Hypertension Benign localized hyperplasia of prostate with urinary obstruction Type 2 diabetes mellitus without complication (CMS/HCC) DM type 2 (diabetes mellitus, type 2) (CMS/HCC) Renal cell carcinoma, left (CMS/HCC) HM ABDOMINAL AORTIC ANEURYSM SCRREN Routine 11/22/2023 LIPID PANEL Routine 07/28/2022 from Last 3 Months or Most Recently Relevant to Health Maintenance Results * XR Fingers 2+ Views Right (12/21/2024 4:02 PM EST) Anatomical Region Laterality Modality Upper Extremities, Fingers Right Compu shanika Radiography Narrative 12/21/2024 4:30 PM EST Date of Visit: 12/21/2024 Reason for visit: Right long finger injury Views: AP, lateral oblique right long finger Comparison: Previous x-rays of the right hand done last year. Findings: Right long finger on the lateral there is an avulsion fragment seen off the dorsum of the DIP joint consistent with bony mallet. ??Mild flexion deformity Impression: Right bony mallet middle finger us Radha BARNEY IMG XR PROCEDURES Final Resul t * (ABNORMAL) Protein and creatinine with ratio, urine (12/11/2024 3:25 PM EST) Protein, Urine 32 mg/dL LAB CHEMISTRY METHOD 12/11/2024 7:22 PM EST [facility] Prot/Creat, Ur 0.22(H) <=0.20 mg/mg creat LAB CHEMISTRY METHOD 12/11/2024 7:22 PM EST [facility] Creatinine, Urine 143.0 mg/dL LAB CHEMISTRY METHOD 12/11/2024 7:22 PM EST [facility] Urine Urine specimen obtained by clean catch procedure / Unknown Non-blood Collection / Unknown 12/11/2024 3:25 PM EST 12/11/2024 3:26 PM EST Fabrizio Driver MD LAB URINE ORDERABLES Final Result [facility] [address] [place] [address], [place] [phone] * (ABNORMAL) Microalbumin creatinine urine ratio (12/11/2024 3:25 PM EST) Creatinine, Urine 143.0 mg/dL LAB CHEMISTRY METHOD 12/11/2024 7:33 PM EST [facility] Microalb, Ur 62.1(H) 0.0 - 29.0 mg/L LAB CHEMISTRY METHOD 12/11/2024 7:33 PM EST [facility] Microalb/Crea t Ratio 43(H) <30 mg/g creat LAB CHEMISTRY METHOD 12/11/2024 7:33 PM EST [facility] Urine Urine specimen obtained by clean catch procedure / Unknown Non-blood Collection / Unknown 12/11/2024 3:25 PM EST 12/11/2024 3:26 PM EST us Fabrizio Driver MD LAB URINE ORDERABLES Final Result Performing Organization Address City/[facility]/ZIP Co de Phone Number [facility] [address] [place] [address], [place] [phone] * (ABNORMAL) Vitamin D 25 hydroxy (12/11/2024 3:25 PM EST) Vit D, 25-Hydroxy 18.7(L) 30.0 - 80.0 ng/mL LAB CHEMISTRY METHOD 12/11/2024 7:49 PM EST [facility] Blood Venous blood specimen / Unknown Venipuncture / Unknown 12/11/2024 3:25 PM EST 12/11/2024 3:26 PM EST us Fabrizio Driver MD LAB BLOOD ORDERABLES Final Result Performing Organization Address City/[facility]/ZIP Co de Phone Number [facility] [address] [place] [address], [place] [phone] * Complete blood count (12/11/2024 3:25 PM EST) WBC 8.7 4.8 - 10.8 K/mcL LAB HEMETOLOGY METHOD 12/11/2024 6:56 PM [facility] RBC 5.50 4.50 - 5.50 M/mcL LAB HEMETOLOGY METHOD 12/11/2024 6:56 PM EST [facility] Hemoglobin 14.9 13.5 - 17.5 g/dL LAB HEMETOLOGY METHOD 12/11/2024 6:56 PM EST [facility] Hematocrit 45.0 42.0 - 54.0 % LAB HEMETOLOGY METHOD 12/11/2024 6:56 PM [facility] MCV 82.6 79.0 - 98.0 FL LAB HEMETOLOGY METHOD 12/11/2024 6:56 PM [facility] MCH 27.3 27.0 - 32.0 pcg LAB HEMETOLOGY METHOD 12/11/2024 6:56 PM EST [facility] MCHC 33.1 32.0 - 37.0 g/dL LAB HEMETOLOGY METHOD 12/11/2024 6:56 PM [facility] RDW 12.3 11.0 - 15.0 % LAB HEMETOLOGY METHOD 12/11/2024 6:56 PM [facility] Platelets 207 130 - 400 K/mcL LAB HEMETOLOGY METHOD 12/11/2024 6:56 PM [facility] MPV 9.8 7.0 - 11.0 FL LAB HEMETOLOGY METHOD 12/11/2024 6:56 PM [facility] NRBC 0.0 <1.0 % LAB HEMETOLOGY METHOD 12/11/2024 6:56 PM [facility] NRBC Absolute 0.00 <0.10 K/mcL LAB HEMETOLOGY METHOD 12/11/2024 6:56 PM [facility] Blood Venous blood specimen / Unknown Venipuncture / Unknown 12/11/2024 3:25 PM EST 12/11/2024 3:26 PM EST us Fabrizio Driver MD LAB BLOOD ORDERABLES Final Result [facility] [address] [place] [address], [place] [phone] * Uric acid (12/11/2024 3:25 PM EST) Uric Acid 3.7 3.7 - 9.2 mg/dL LAB CHEMISTRY METHOD 12/11/2024 7:39 PM EST [facility] Blood Venous blood specimen / Unknown Venipuncture / Unknown 12/11/2024 3:25 PM EST 12/11/2024 3:26 PM EST Fabrizio Driver MD LAB BLOOD ORDERABLES Final Result [facility] [address] [place] [address], [place] [phone] * Parathyroid hormone intact (12/11/2024 3:25 PM EST) PTH 56.8 18.5 - 88.0 pcg/mL LAB CHEMISTRY METHOD 12/11/2024 7:55 PM EST [facility] Blood Venous blood specimen / Unknown Venipuncture / Unknown 12/11/2024 3:25 PM EST 12/11/2024 3:26 PM EST Fabrizio Driver MD LAB BLOOD ORDERABLES Final Result [facility] [address] [place] [address], [place] [phone] * (ABNORMAL) Hemoglobin A1c (12/11/2024 3:25 PM EST) Hemoglobin A1C 9.0(H) <6.5 % LAB CHEMISTRY METHOD 12/11/2024 9:19 PM EST [facility] Mean Bld Glu Estim. 212 mg/dL LAB CHEMISTRY METHOD 12/11/2024 9:19 PM EST [facility] Blood Venous blood specimen / Unknown Venipuncture / Unknown 12/11/2024 3:25 PM EST 12/11/2024 3:26 PM EST Fabrizio Driver MD LAB BLOOD ORDERABLES Final Result [facility] [address] [place] [address], [place] [phone] * (ABNORMAL) Renal function panel (12/11/2024 3:25 PM EST) Sodium 133 133 - 145 mmol/L LAB CHEMISTRY METHOD 12/11/2024 7:39 PM [facility] Potassium 3.8 3.5 - 5.5 mmol/L LAB CHEMISTRY METHOD 12/11/2024 7:39 PM [facility] Chloride 99 96 - 110 mmol/L LAB CHEMISTRY METHOD 12/11/2024 7:39 PM [facility] CO2 29 21 - 32 mmol/L LAB CHEMISTRY METHOD 12/11/2024 7:39 PM [facility] Anion Gap 5 3 - 11 LAB CHEMISTRY METHOD 12/11/2024 7:39 PM [facility] Glucose 225(H) 70 - 100 mg/dL LAB CHEMISTRY METHOD 12/11/2024 7:39 PM [facility] BUN 21 5 - 25 mg/dL LAB CHEMISTRY METHOD 12/11/2024 7:39 PM [facility] Creatinine 1.27 0.70 - 1.30 mg/dL LAB CHEMISTRY METHOD 12/11/2024 7:39 PM [facility] eGFR 61 >=60 mL/min/1. 73m2 LAB CHEMISTRY METHOD 12/11/2024 7:39 PM [facility] Comment:Calculation based on the??Chronic Kidney Disease Epidemiology Collaboration (CKD-EPI) equation refit??without adjustment for race. BUN/Creatinine Ratio 16.5 LAB CHEMISTRY METHOD 12/11/2024 7:39 PM [facility] Albumin 4.0 3.2 - 5.0 g/dL LAB CHEMISTRY METHOD 12/11/2024 7:39 PM EST [facility] Calcium 8.9 8.5 - 10.5 mg/dL LAB CHEMISTRY METHOD 12/11/2024 7:39 PM EST [facility] Phosphorus 3.0 2.5 - 4.5 mg/dL LAB CHEMISTRY METHOD 12/11/2024 7:39 PM EST [facility] Blood Venous blood specimen / Unknown Venipuncture / Unknown 12/11/2024 3:25 PM EST 12/11/2024 3:26 PM EST Fabrizio Driver MD LAB BLOOD ORDERABLES Final Result [facility] [address] [place] [address], * Abdominal Aortic Aneurysm Screen (11/22/2023) Pathologist [facility] Abdominal Aortic Aneurysm (AAA) Screening abstracted Anatomical Region Laterality Modality Other Historical Provider HEALTH MAINTENANCE Final Result * (ABNORMAL) Lipid panel (07/28/2022) LDL/HDL Ratio 5(A) 0 - 4 Triglycerides 248(A) 0 - 150 mg/dL Cholesterol 214(A) 0 - 200 mg/dL HDL 45 >=40 mg/dL LDL Cholesterol 120(A) 0 - 100 mg/dL Blood Venous blood specimen / Unknown Historical Provider LAB BLOOD ORDERABLES Sandy l Result from Last 3 Months or Most Recently Relevant to Health Maintenance Insurance MEDICARE [facility] Care Teams Acid Dipper Relationship Specialty Start Date End Date Stephanie Willoughby PA [address] [address] PCP - General Primary Care 12/11/24
--- OUTSIDE RECORDS SUMMARY | 2024-12-27 16:10 | XMS_ITS | Encounter Summary ---
Author Organization [facility] Address [address] [place] [address] Phone Care Team Providers Care Canal Boat Captain Name Role Phone Stephanie Willoughby PA-C Primary Care Provider + Reason for Visit * Reason Comments Med Refill Encounter Details Date Type Department Care Team (Late st Contact Info) Description 06/21/2023 Refill [facility] [address] [place] [phone] Ronnell Dinero MD Social History Tobacco Use [...] on filedocumented in this encounter Care Teams Canal Boat Captain Relationship Specialty Start Date End Date Stephanie Willoughby PA-C [address] [place] [address] PCP - General Physician Medical Lab Technologist 01/09/21 documented as of this encounter
== END 2024-12-27 15:52 | disposition home or self-care (01) ==
PROVIDERS: PCP Physician Assistant; Visit Provider Internal Medicine Nephrology
DX: I10 Essential (primary) hypertension (principal); Z90.5 Acquired absence of kidney; R80.8 Other proteinuria
CPT/HCPCS: 99214

== ENCOUNTER → 2024-12-27 15:00 | Outpatient (BNVA) | payer MEDICARE, SELFPAY | PROVIDERS: PCP Physician Assistant; Visit Provider Internal Medicine Nephrology | DX: I10 Essential (primary) hypertension (principal); R80.8 Other proteinuria; Z90.5 Acquired absence of kidney | CPT/HCPCS: 99212 ==

== ENCOUNTER 2025-02-06 14:18 | Outpatient (AMB) | payer MEDICARE, SELFPAY ==
[2025-02-06 15:03] VITALS: PULSE 83; O2SAT 96; BMI 38.7
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
--- OUTSIDE RECORDS SUMMARY | 2025-02-06 17:54 | XMS_ITS | Encounter Summary ---
Author Organization [facility] Address [address] [place] [address] Phone Care Team Providers Care Smash Hand Name Role Phone Stephanie Willoughby PA-C Primary Care Provider + Reason for Visit * Reason Comments Med Refill Encounter Details Date Type Department Care Team (Late st Contact Info) Description 07/01/2023 Refill [facility] [address] [place] [phone] Ronnell Dinero MD Social History Tobacco Use [...] on filedocumented in this encounter Care Teams Smash Hand Relationship Specialty Start Date End Date Stephanie Willoughby PA-C [address] [place] [address] PCP - General Physician Art Psychotherapist 01/09/21 documented as of this encounter
--- OUTSIDE RECORDS SUMMARY | 2025-02-06 17:54 | XMS_ITS | Encounter Summary ---
Author Organization [facility] Address 100 [facility] 200 [place] [address] Phone Care Team Providers Care Rubber Boots And Shoes Repairer Name Role Phone Stephanie Willoughby PA-C Primary Care Provider + Reason for Visit * Reason Comments Med Refill Encounter Details Date Type Department Care Team ([facility] st Contact Info) Description 05/14/2024 Refill [facility] 100 [facility] 200 [place] [phone] Fabrizio Driver MD [address] [facility] 204 [place] [phone] Hypertension; Acquired absence of kidney Social History [...] kidney documented in this encounter Care Teams Rubber Boots And Shoes Repairer Relationship Specialty Start Date End Date Stephanie Willoughby PA-C [address] [place] [address] PCP - General Physician Call Person 01/09/21 documented as of this encounter
--- OUTSIDE RECORDS SUMMARY | 2025-02-06 17:54 | XMS_ITS | Encounter Summary ---
Author Organization [facility] Address [address] [place] [address] Care Team Providers Care Director Of Technology Name Role Phone Stephanie Willoughby Primary Care Provider + Reason for Referral * Consultation (Routine) - Closed Specialty Diagnoses / Procedures Referred By Ny to Referred To Contact Neurology Diagnoses Memory disturbance Stephanie Willoughby PA [address] [address] Phone: tel: fax: Kellee Lawrence MD [address] [address] Phone: tel: fax: Referral ID Status Reason Start Date Expiration Date V isits Requested Visits Authorized [id number] Closed Specialty Services Required 01/18/2025 01/18/20[address] Lawrence Reason for Visit * Reason Onset Date Comments Stephanie: Referral 01/18/2025 Encounter Details Date Type Department Care Team (Late st Contact Info) Description 01/18/2025 Telephone Internal Medicine - [place] 175 [facility] 200 [place] [address] Stephanie Willoughby PA 175 [facility] 200 [place] [address] Stephanie: Referral Social History Tobacco Use Types Packs/Day Years [...] as of this encounter Progress Notes * Norberto Rider MA - 01/30/2025 10:58 AM EDT Faxed * [facility] - 01/30/2025 10:12 AM EDT Deyvi employment attorney called and requested a copy of the patients neurology referral for theirrecords for workers comp case. Please advise Cb# [phone] * SAVITA Lebron - 01/18/2025 4:20 PM EST Referral placed. Thank you. * Amaris Parra MA - 01/18/2025 10:39 AM EST Please advise referral request * [facility] - 01/18/2025 10:28 AM EST Patient called and requested a referral to neurology with Kellee Lawrence MD because he is having speech concerns and is having neck pain and memory issues. Please advise Cb# [phone] documented in this encounter Plan of Treatment Upcoming Encounters Date Type Department Care Team (Late st Contact Info) Description 02/09/2025 4:00 PM EDT Office Visit Orthopedic Surgery [address] [place] [phone] Radha Serrano PA 174 [facility] 140 [place] [phone] 02/19/2025 3:00 PM EDT Office Visit Orthopedic Surgery [facility] 175 [facility] 140 [place] [phone] Radha Serrano PA [address] [phone] 04/20/2025 1:15 PM EDT Office Visit Internal Medicine [facility] [address] [phone] Stephanie Willoughby PA [address] [address] Scheduled Referrals Name Type Priority Associated Diagnoses Order Schedule Ambulatory referral to Neurology Outpatient Referral Routine Memory disturbance 1 Occurrences starting 01/18/2025 until 01/18/2026 documented as of this encounter Visit Diagnoses Diagnosis Memory disturbance- Primary Memory loss documented in this encounter Care Teams Director Of Technology Relationship Specialty Start Date End Date Stephanie Willoughby PA [address] [address] PCP - General Primary Care 12/11/24 documented as of this encounter
--- OUTSIDE RECORDS SUMMARY | 2025-02-06 17:54 | XMS_ITS | Encounter Summary ---
Author Organization [facility] Address [address] [place] [address] Phone Care Team Providers Care Dowel Machine Operator Name Role Phone Stephanie Willoughby PA-C Primary Care Provider + Reason for Visit * Reason Comments Med Refill Encounter Details Date Type Department Care Team (Late st Contact Info) Description 06/21/2023 Refill [facility] [address] [place] [phone] Ronnell Dinero MD Social History Tobacco Use [...] on filedocumented in this encounter Care Teams Dowel Machine Operator Relationship Specialty Start Date End Date Stephanie Willoughby PA-C [address] [place] [address] PCP - General Physician Business Info Consultant 01/09/21 documented as of this encounter
--- OUTSIDE RECORDS SUMMARY | 2025-02-06 17:54 | XMS_ITS | Encounter Summary ---
Author Organization [facility] Address [address] [place] [address] Care Team Providers Care Regulatory Associate Name Role Phone Stephanie Willoughby Primary Care Provider + Reason for Visit * Reason Comments Hand Pain Fu thumb lacration m iddle finger Encounter Details Date Type Department Care Team (Late st Contact Info) Description 02/02/2025 8:00 AM EDT Office Visit Orthopedic Surgery - [place] 175 [facility] [address] [place] [phone] Radha Serrano PA [address] [facility] [place] [phone] Laceration of right thumb without foreign body without damage to nail, initial encounter (Primary Dx); Laceration of right middle finger without foreign body without damage to nail, initial encounter Social History Tobacco Use Types Packs/Day Years [...] on file documented as of this encounter Last Filed Vital Signs Vital Sign Reading Time Taken Comments Blood Pressure - - Pulse - - Temperature - - Respiratory Rate - - Oxygen Saturation - - Inhaled Oxygen Concentration - - Weight 108 kg (238 lb) 02/02/2025 8:03 AM EDT Height 161.3 cm (5' 3.5 ) 02/02/2025 8:03 AM EDT Body Mass Index 41.49 02/02/2025 8:03 AM EDT documented in this encounter Progress Notes * SAVITA Spears - 02/02/2025 8:00 AM EDT Images from the original note were not included. CHIEF COMPLAINT: Hand Pain (Fu thumb lacration middle finger) had concerns including Hand Pain (Fu thumb lacration middle finger). IDENTIFIER: Marco Zavaleta is a 69 y.o. old male SUBJECTIVE: Marco Zavaleta is here for different problem-right thumb and long finger lacerations. He is right-hand dominant. He has been seen by myself and Dr. De Leon in the past for carpal tunnel surgery and right long finger A1 madhuri release in 2022. Also in November of this year for mallet finger. This is a new injury. Sustained lacerations to his right hand, dorsum of the thumb at the level of the distal phalanx and long finger distal phalanx on January 29. He was cutting wood and the table saw kicked back with the wood forcefully hitting his thumb and long finger. He went to [facility] and I reviewed the note. He received stitches. There was an x-ray that showed no foreign body or fracture. He was given Tylenol and ibuprofen for pain. He was given an updated tetanus shot. No antibiotics. He is taking just Tylenol. He wanted to get things checked as the right thumb was still oozing a little bit. He has stitches in place. PAST MEDICAL/SURGICAL HISTORY: Patient Active Problem List Diagnosis Date Noted Tear of biceps tendon 10/06/2024 Right carpal tunnel syndrome 05/05/2022 Trigger middle finger of right hand 05/05/2022 Carpal tunnel syndrome on both sides 08/20/2020 Renal cell carcinoma, left ([facility]) 08/12/2020 Neck pain 11/27/2019 Tear of biceps muscle 05/09/2019 Benign localized hyperplasia of prostate with urinary obstruction 07/02/2017 BPH associated with nocturia 07/02/2017 GERD (gastroesophageal reflux disease) 07/02/2017 Hyperlipidemia 07/02/2017 Hypertension 07/02/2017 Obstructive sleep apnea 07/02/2017 Type 2 diabetes mellitus without complication ([facility]) 07/02/2017 DM type 2 (diabetes mellitus, type 2) ([facility]) 07/02/2017 Arthritis 04/22/2016 Herpes simplex type 1 infection 04/22/2016 Eczema 05/30/2013 Past Surgical History: Procedure Laterality Date NEPHRECTOMY Left 11/01/2020 PROCEDURE: HISTORICAL NEPHRECTOMY; COMMENT: due renal cell carcinoma - Dr. Hampton OTHER SURGICAL HISTORY Left 08/12/2020 PROCEDURE: AR RENAL BIOPSY PRQ TROCAR/NEEDLE; COMMENT: most likely renal cell carcinoma MEDICATIONS DISCONTINUED/REORDERED: There are no discontinued medications. ACTIVE MEDICATIONS: Outpatient Medications Marked as Taking for the 02/02/25 encounter (Office Visit) with SAVITA Spears Medication Sig Dispense Refill amLODIPine (NORVASC) 5 mg tablet TAKE 1 TABLET BY MOUTH EVERY DAY 90 tablet 3 atorvastatin (LIPITOR) 20 mg tablet Take 1 tablet (20 mg total) by mouth 1 (one) time each day. blood sugar diagnostic (FreeStyle Lite Strips) test strip 1 Strip by In Vitro route 2 times daily. blood-glucose meter kit 1 Kit by Does not apply route daily. CALCIUM CARBONATE ORAL Take 1 Tablet by mouth 2 times daily. diclofenac (VOLTAREN) 1 % topical gel Apply 1 g topically 3 times daily. fluticasone propionate (FLONASE) 50 mcg/actuation nasal spray SPRAY 2 SPRAYS INTO EACH NOSTRIL EVERY DAY 48 mL 1 FREESTYLE LANCETS MISC 1 Each by Does not apply route 2 times daily. glipiZIDE (GLUCOTROL XL) 5 mg 24 hr tablet Take 1 tablet (5 mg total) by mouth 1 (one) time each day. Jardiance 10 mg tablet Take 1 tablet (10 mg total) by mouth 1 (one) time each day. tamsulosin (FLOMAX) 0.4 mg 24 hr capsule Take 2 capsules (0.8 mg total) by mouth 1 (one) time each day. Capsules should be taken 30 minutes following the same meal each day. 180 capsule 3 Vitamin D3 50 mcg (2,000 unit) capsule Take 1 capsule (2,000 Units total) by mouth 1 (one) time each day. ALLERGIES: No Known Allergies PHYSICAL EXAM: Visit Vitals Ht 1.613 m (63.5 ) Wt 108 kg (238 lb) BMI 41.49 kg/m?? Smoking Status Former BSA 2.09 m?? APPEARANCE: Alert and in no acute distress EXTREMITIES: Extremities warm and well perfused without clubbing, cyanosis, or edema Right thumb there is a untidy laceration at the dorsum of the distal phalanx. Sutures intact. A very small subungual hematoma. Nail is intact. Mild bleeding. There is some skin maceration. Patient can fully extend and flex the thumb at the IP joint and sensation intact distally. He can make a light fist. At the tip of the right long finger there is a laceration with sutures intact. No skin necrosis. FDP and FDS intact. Sensation intact to the tip of the right long finger. LABS/IMAGING: Lab Results Component Value Date HGBA1C 9.0 (H) 12/11/2024 Xrays reviewed: X-ray report from [facility] reviewed showing no fracture or foreign body IMPRESSION: 1. Laceration of right thumb without foreign body without damage to nail, initial encounter 2. Laceration of right middle finger without foreign body without damage to nail, initial encounter PLAN: The details of the visit were reviewed with the patient. Pertinent history, and objective findings were reviewed, along with the diagnoses: Lacerations to the right thumb and right long finger. No tendon or nerve damage. Discussed wound care with a dry dressing over the thumb and he needs just a Band-Aid over the right long finger. He is still working, he is a truck sales representative. Gentle range of motionof the hand. Dressing change performed today and supplies given. I will see him back in a week for suture removal. Marco Zavaleta acknowledges understanding of the above plan and agrees to follow recommendations and/or take medications as prescribed. No orders of the defined types were placed in this encounter. @ELECSIG@ documented in this encounter Plan of Treatment Upcoming Encounters Date Type Department Care Team (Late st Contact Info) Description 02/09/2025 4:00 PM EDT Office Visit Orthopedic Surgery [facility] [address] [phone] Radha Serrano PA [address] [place] [phone] 02/19/2025 3:00 PM EDT Office Visit Orthopedic Surgery [facility] 175 [facility] 140 [place] [phone] Radha Serrano PA 174 [facility] 140 [place] [address] 04/20/2025 1:15 PM EDT Office Visit Internal Medicine - [place] 175 [facility] 200 [place] [address] Stephanie Willoughby PA 175 [facility] 200 [place] [address] documented as of this encounter Visit Diagnoses Diagnosis Laceration of right thumb without foreign body without damage to nail, initial encounter- Primary Laceration of right middle finger without foreign body without damage to nail, initial encounter documented in this encounter Care Teams Regulatory Associate Relationship Specialty Start Date End Date Stephanie Willoughby PA 175 [facility] 200 [place] [address] PCP - General Primary Care 12/11/24 documented as of this encounter
--- OUTSIDE RECORDS SUMMARY | 2025-02-06 17:54 | XMS_ITS | Clinical Summary ---
Author Organization [facility] Address [address] [address] Phone Care Team Providers Care Service Desk Manager Name Role Phone Stephanie Willoughby PA-C [...] Orders Only [facility]. [address] [address] Fabrizio Driver MD from Last [...] 3:25 PM EST) Protein, Ur 32 mg/dL [facility] Urine Protein/Creati nine Ratio 0.22(H) <=0.20 mg/mg creat [facility] Creatinine, Urine 143.0 mg/dL [facility] 12/11/2024 3:25 PM EST 12/11/2024 6:36 PM EST us Fabrizio Driver MD LAB URINE ORDERABLES Final Result Performing Organization Address [facility] Co de Phone Number [facility] [address] [place] [address] * (ABNORMAL) Urine Albumin / Creatinine Ratio (12/11/2024 3:25 PM EST) Creatinine, Urine 143.0 mg/dL [facility] Microalbumin Urine Random 62.1(H) 0.0 - 29.0 mg/L [facility] Microalbumin/Cre atinine Ratio 43(H) <30 mg/g creat [facility] 12/11/2024 3:25 PM EST 12/11/2024 6:36 PM EST us Fabrizio Driver MD LAB URINE ORDERABLES Final Result Performing Organization Address City/[facility]/ZIP Co de Phone Number [facility] [address] [place] [address] * (ABNORMAL) Vitamin D 25 Hydroxy (12/11/2024 3:25 PM EST) Vitamin D, 25-OH, Total 18.7(L) 30.0 - 80.0 ng/mL [facility] 12/11/2024 3:25 PM EST 12/11/2024 6:36 PM EST us Fabrizio Driver MD LAB BLOOD ORDERABLES Final Result [facility] [address] [place] [address] * CBC (12/11/2024 3:25 PM EST) WBC 8.7 4.8 - 10.8 K/[facility] RBC 5.50 4.50 - 5.50 M/[facility] Hgb 14.9 13.5 - 17.5 g/dL [facility] Hematocrit 45.0 42.0 - 54.0 % [facility] MCV 82.6 79.0 - 98.0 FL [facility] MCH 27.3 27.0 - 32.0 pcg [facility] MCHC 33.1 32.0 - 37.0 g/dL [facility] RDW 12.3 11.0 - 15.0 % [facility] Platelets 207 130 - 400 K/[facility] MPV 9.8 7.0 - 11.0 FL [facility] nRBC Count 0.0 <1.0 % [facility] NRBC Absolute 0.00 <0.10 K/[facility] 12/11/2024 3:25 PM EST 12/11/2024 6:38 PM EST us Fabrizio Driver MD LAB BLOOD ORDERABLES Final Result Performing Organization Address [facility] Co de Phone Number [facility] [address] [place] [address] * Uric Acid (12/11/2024 3:25 PM EST) Uric Acid 3.7 3.7 - 9.2 mg/dL [facility] 12/11/2024 3:25 PM EST 12/11/2024 6:36 PM EST us Fabrizio Driver MD LAB BLOOD ORDERABLES Final Result Performing Organization Address [facility] de Phone Number [facility] [address] [place] [address] * PTH, Intact (12/11/2024 3:25 PM EST) Pathologist [facility] PTH 56.8 18.5 - 88.0 pcg/mL [facility] 12/11/2024 3:25 PM EST 12/11/2024 6:36 PM EST us Fabrizio Driver MD LAB BLOOD ORDERABLES Final Result Performing Organization Address [facility] Co de Phone Number [facility] [address] [place] [address] * (ABNORMAL) Hemoglobin A1c (12/11/2024 3:25 PM EST) Hemoglobin A1C 9.0(H) <6.5 % [facility] Estimated Average Glucose 212 mg/dL [facility] 12/11/2024 3:25 PM EST 12/11/2024 6:38 PM EST us Fabrizio Driver MD LAB BLOOD ORDERABLES Final Result Performing Organization Address City/[facility]/ZIP Co de Phone Number [facility] [address] [place] [address] * (ABNORMAL) Renal Function Panel (12/11/2024 3:25 PM EST) Sodium 133 133 - 145 mmol/L [facility] Potassium 3.8 3.5 - 5.5 mmol/L [facility] Chloride 99 96 - 110 mmol/L [facility] Bicarbonate (CO2) 29 21 - 32 mmol/L [facility] Anion Gap 5 3 - 11 [facility] Glucose 225(H) 70 - 100 mg/dL [facility] BUN 21 5 - 25 mg/dL [facility] Creatinine Serum 1.27 0.70 - 1.30 mg/dL [facility] eGFR 61 >=60 mL/min/1. 73m2 [facility] Comment:Calculation based on the?Chronic Kidney Disease Epidemiology Collaboration (CKD-EPI) equation refit?without adjustment for race. BUN/Creatinine Ratio 16.5 [facility] Albumin 4.0 3.2 - 5.0 g/dL [facility] Calcium 8.9 8.5 - 10.5 mg/dL [facility] Phosphorus 3.0 2.5 - 4.5 mg/dL [facility] 12/11/2024 3:25 PM EST 12/11/2024 6:36 PM EST us Fabrizio Dirver MD LAB BLOOD ORDERABLES Final Result [facility] [address] [place] [address] from Last 3 Months Insurance MEDICARE [facility] MEDICARE [facility] Care Teams Service Desk Manager Relationship Specialty Start Date End Date Stephanie Willoughby PA-C [facility] [place] [address] PCP - General Physician Field Scout 01/09/21
--- OUTSIDE RECORDS SUMMARY | 2025-02-06 17:54 | XMS_ITS | Encounter Summary ---
Author Organization [facility] Address [address] [place] [address] Care Team Providers Care Bindery Manager Name Role Phone Stephanie Willoughby Primary Care Provider + Reason for Visit * Reason Onset Date Comments Hospital Follow-up 01/31/2025 Encounter Details Date Type Department Care Team (Late st Contact Info) Description 01/31/2025 Telephone Internal Medicine - [place] [address] [facility] [address] [place] [address] Stephanie Willoughby PA [address] [place] [address] Hospital Follow-up Social History Tobacco Use Types Packs/Day Years [...] as of this encounter Progress Notes * Soledad Gama RN - 01/31/2025 10:46 AM EDT Call to pt # [phone], spoke w/ him. Appt booked, Wednesday D/c printed * [facility] - 01/31/2025 10:36 AM EDT Patient called and stated that he was in [facility] on 01/29 due to a piece of wood getting caught on his finger and it cut his right hand in between thumb and middle finger and they put around 4-6 stiches in and they told him that he should keep them in for 7 days but he is uncomfortable and would like a appt to take them out. Please advise Cb# [phone] documented in this encounter Plan of Treatment Upcoming Encounters Date Type Department Care Team (Late st Contact Info) Description 02/09/2025 4:00 PM EDT Office Visit Orthopedic Surgery - [place] [address] [facility] [address] [place] [phone] Radha Serrano PA [address] [facility] [address] [place] [address] 02/19/2025 3:00 PM EDT Office Visit Orthopedic Surgery - [place] [address] [facility] [address] [place] [phone] Radha Serrano PA [address] [place] [address] 04/20/2025 1:15 PM EDT Office Visit Internal Medicine - [place] [address] [facility] [address] [facility] 200 [place] [phone] Stephanie Willoughby PA 175 [facility] [address] [place] [address] documented as of this encounter Visit Diagnoses Not on filedocumented in this encounter Care Teams Bindery Manager Relationship Specialty Start Date End Date Stephanie Willoughby PA 175 [facility] [address] [place] [address] PCP - General Primary Care 12/11/24 documented as of this encounter
--- OUTSIDE RECORDS SUMMARY | 2025-02-06 17:54 | XMS_ITS | Encounter Summary ---
Author Organization [facility] Address [address] [place] [address] Phone Care Team Providers Care Control Room Operator Name Role Phone Stephanie Willoughby PA-C Primary Care Provider + Reason for Visit * Reason Comments Med Refill Encounter Details Date Type Department Care Team (Late st Contact Info) Description 11/19/2022 Refill [facility] [address] [place] [phone] Ronnell Dinero MD Social History Tobacco Use [...] on filedocumented in this encounter Care Teams Control Room Operator Relationship Specialty Start Date End Date Stephanie Willoughby PA-C [address] [place] [address] PCP - General Physician Talent Rep 01/09/21 documented as of this encounter
--- OUTSIDE RECORDS SUMMARY | 2025-02-06 17:54 | XMS_ITS | Clinical Summary ---
Author Organization 175 [facility] Address 175 [place] [address] Phone Care Team Providers Care Director Of Technology Name Role Phone Stephanie Willoughby Primary Care Provider + Allergies No known active allergies Medications amLODIPine (NORVASC) 5 mg tablet TAKE 1 [...] g topically 3 times daily. 3 Active glipiZIDE (GLUCOTROL XL) 5 mg 24 hr tablet Take 1 tablet (5 mg total) by mouth 1 (one) time each day. 3 Active fluticasone propionate (FLONASE) 50 mcg/actuation nasal spray SPRAY 2 SPRAYS INTO EACH NOSTRIL EVERY DAY 48 mL 1 5 Active tamsulosin (FLOMAX) 0.4 mg 24 hr capsuleIndicati ons:BPH associated with nocturia Take 2 capsules (0.8 mg total) by mouth 1 (one) time each day. Capsules should be taken 30 minutes following the same meal each day. 180 capsule 3 5 Active Jardiance 10 mg tablet Take 1 tablet (10 mg total) by mouth 1 (one) time each day. 5 Active Vitamin D3 50 mcg (2,000 unit) capsule Take 1 capsule (2,000 Units total) by mouth 1 (one) time each day. 5 Active tamsulosin (FLOMAX) 0.4 mg 24 hr capsule Take 1 Capsule by mouth daily. Take 30 mins after same meal every day. 4 01/17/20 25 Discontinu ed(Reorder ) Active Problems Problem Noted Date Diagnosed Date [...] Encounters Date Type Department Care Team Description 02/02/2025 8:00 AM EDT Office Visit Orthopedic Surgery - [place] 175 [facility] [address] [place] [address] Radha Serrano PA Laceration of right thumb without foreign body without damage to nail, initial encounter (Primary Dx); Laceration of right middle finger without foreign body without damage to nail, initial encounter 01/31/2025 Telephone Internal Medicine - [place] 175 [facility] [address] [place] [address] Stephanie Willoughby PA Hospital Follow-up 01/19/2025 Telephone Adult Medicine [facility] [address] [place] [address] Nikkie Elizabeth, PharmD referral 01/18/2025 Telephone Internal Medicine [facility] 175 [facility] [address] [place] [address] Stephanie Willoughby PA Melonie: Referral 01/16/2025 3:00 PM EST Office Visit Internal Medicine [facility] 175 [facility] [address] [place] [address] Stephanie Willoughby PA Type 2 diabetes mellitus with diabetic microalbuminuria, without long-term current use of insulin ([facility]) (Primary Dx); Primary hypertension; Mixed hyperlipidemia; BPH associated with nocturia; Morbid obesity with BMI of 40.0-44.9, adult ([facility]) 12/21/2024 3:30 PM EST Office Visit Orthopedic Surgery - [place] 175 [facility] [address] [place] [address] Radha Serrano PA Left carpal tunnel syndrome (Primary Dx); [...] Comments OTHER SURGICAL HISTORY 08/12/2020 Left PROCEDURE: AK RENAL BIOPSY PRQ TROCAR/NEEDLE; COMMENT: most likely renal cell carcinoma NEPHRECTOMY 11/01/2020 Left PROCEDURE: HISTORICAL NEPHRECTOMY; COMMENT: due renal cell carcinoma - Dr. Hampton Medical History Medical History Date Comments Arthritis 04/22/2016 DX:Arthritis Eczema 05/30/2013 DX:Eczema GERD (gastroesophageal reflux disease) 7 DX:GERD (gastroesophageal reflux disease) Herpes simplex type 1 infection 04/22/2016 DX:Herpes simplex type 1 infection Hyperlipidemia 07/02/2017 DX:Hyperlipidemi a Hypertension 07/02/2017 DX:Hypertension Obstructive sleep apnea 07/02/2017 DX:Obstr uctive sleep apnea Tear of biceps tendon DX:Tear of biceps tendon BPH associated with nocturia 07/02/2017 DX: BPH associated with nocturia DM type 2 (diabetes mellitus , type 2) ([facility]) 07/02/2017 DX:DM type 2 (diabetes melli tus, type 2) ([facility]) Renal cell carcinoma, left 08/12/2020 DX:Re nal cell carcinoma, left ([facility]); COMMENT: bx 08/12/20, left nephrectomy 11/01/20 Dr. Hampton Morbid obesity with BMI of 4 5.0-49.9, adult ([facility]) DX:Morbid obesity with BMI o f 45.0-49.9, adult ([facility]) Family History Medical History Relation Name Comments [...] Sign Reading Time Taken Comments Blood Pressure 148/80 01/16/2025 2:53 PM EST Pulse 76 01/16/2025 2:50 PM EST Temperature 36.7 ??C (98 ??F) 01/16/2025 2:50 PM EST Respiratory Rate - - Oxygen Saturation 98% 01/16/2025 2:50 PM EST Inhaled Oxygen Concentration - - Weight 108 kg (238 lb) 02/02/2025 8:03 AM EDT Height 161.3 cm (5' 3.5 ) 02/02/2025 8:03 AM EDT Body Mass Index 41.49 02/02/2025 8:03 AM EDT Plan of Treatment Upcoming Encounters Date Type Department Care Team (Late st Contact Info) Description 02/09/2025 4:00 PM EDT Office Visit Orthopedic Surgery - [place] 175 [facility] [address] [place] [phone] Radha Serrano PA [address] [facility] [address] [place] [phone] 02/19/2025 3:00 PM EDT Office Visit Orthopedic Surgery - [place] [address] [place] [phone] Radha Serrano PA 174 [facility] [address] [place] [address] 04/20/2025 1:15 PM EDT Office Visit Internal Medicine - [place] 175 [facility] [address] [place] [phone] Stephanie Willoughby PA 175 [facility] [address] [place], [place] [phone] Health Maintenance Due Date Last Done Comments [...] (Lipid Panel) 07/28/2027 07/28/2022 DTaP,Tdap,and Td Vaccines (3 - Td or Tdap) 01/30/2035 01/30/2025, 05/17/2022 Pneumococcal Vaccine: 50+ Years Completed 08/03/2023 [...] patient's age to complete this topic Meningococcal B Vacine Aged Out No lo nger eligible based on patient's age to complete [...] LAB CHEMISTRY METHOD 12/11/2024 7:22 PM EST [facility] Prot/Creat, Ur 0.22(H) <=0.20 mg/mg creat LAB CHEMISTRY METHOD 12/11/2024 7:22 PM EST [facility] Creatinine, Urine 143.0 mg/dL LAB CHEMISTRY METHOD 12/11/2024 7:22 PM EST [facility] Urine Urine specimen obtained by clean catch procedure / Unknown Non-blood Collection / Unknown 12/11/2024 3:25 PM EST 12/11/2024 3:26 PM EST us Fabrizio Driver MD LAB URINE ORDERABLES Final Result [facility] [address] [place] [address], [place] [phone] * (ABNORMAL) Microalbumin creatinine urine ratio (12/11/2024 3:25 PM EST) Creatinine, Urine 143.0 mg/dL LAB CHEMISTRY METHOD 12/11/2024 7:33 PM EST [facility] Microalb, Ur 62.1(H) 0.0 - 29.0 mg/L LAB CHEMISTRY METHOD 12/11/2024 7:33 PM EST [facility] Microalb/Crea t Ratio 43(H) <30 mg/g creat LAB CHEMISTRY METHOD 12/11/2024 7:33 PM EST [facility] Urine Urine specimen obtained by clean catch procedure / Unknown Non-blood Collection / Unknown 12/11/2024 3:25 PM EST 12/11/2024 3:26 PM EST Fabrizio Driver MD LAB URINE ORDERABLES Final Result [facility] [address] [place] [address], [place] [phone] * (ABNORMAL) Vitamin D 25 hydroxy (12/11/2024 3:25 PM EST) Vit D, 25-Hydroxy 18.7(L) 30.0 - 80.0 ng/mL LAB CHEMISTRY METHOD 12/11/2024 7:49 PM EST [facility] Blood Venous blood specimen / Unknown Venipuncture / Unknown 12/11/2024 3:25 PM EST 12/11/2024 3:26 PM EST Fabrizio Driver MD LAB BLOOD ORDERABLES Final Result [facility] [address] [place] [address], [place] [phone] * Complete blood count (12/11/2024 3:25 PM EST) [facility] WBC 8.7 4.8 - 10.8 K/mcL LAB HEMETOLOGY METHOD 12/11/2024 6:56 PM [facility] RBC 5.50 4.50 - 5.50 M/mcL LAB HEMETOLOGY METHOD 12/11/2024 6:56 PM [facility] Hemoglobin 14.9 13.5 - 17.5 g/dL LAB HEMETOLOGY METHOD 12/11/2024 6:56 PM [facility] Hematocrit 45.0 42.0 - 54.0 % LAB HEMETOLOGY METHOD 12/11/2024 6:56 PM [facility] MCV 82.6 79.0 - 98.0 FL LAB HEMETOLOGY METHOD 12/11/2024 6:56 PM [facility] MCH 27.3 27.0 - 32.0 pcg LAB HEMETOLOGY METHOD 12/11/2024 6:56 PM [facility] MCHC 33.1 32.0 - 37.0 g/dL LAB HEMETOLOGY METHOD 12/11/2024 6:56 PM [facility] RDW 12.3 11.0 - 15.0 % LAB HEMETOLOGY METHOD 12/11/2024 6:56 PM [facility] Platelets 207 130 - 400 K/mcL LAB HEMETOLOGY METHOD 12/11/2024 6:56 PM [facility] MPV 9.8 7.0 - 11.0 FL LAB HEMETOLOGY METHOD 12/11/2024 6:56 PM [facility] NRBC 0.0 <1.0 % LAB HEMETOLOGY METHOD 12/11/2024 6:56 PM [facility] NRBC Absolute 0.00 <0.10 K/mcL LAB HEMETOLOGY METHOD 12/11/2024 6:56 PM EST [facility] Blood Venous blood specimen / Unknown Venipuncture / Unknown 12/11/2024 3:25 PM EST 12/11/2024 3:26 PM EST us Fabrizio Driver MD LAB BLOOD ORDERABLES Final Result Performing Organization Address City/[facility]/ZIP Co de Phone Number [facility] [address] [place] [address], [place] [phone] * Uric acid (12/11/2024 3:25 PM EST) Uric Acid 3.7 3.7 - 9.2 mg/dL LAB CHEMISTRY METHOD 12/11/2024 7:39 PM EST [facility] Blood Venous blood specimen / Unknown Venipuncture / Unknown 12/11/2024 3:25 PM EST 12/11/2024 3:26 PM EST us Fabrizio Driver MD LAB BLOOD ORDERABLES Final Result Performing Organization Address City/[facility]/ZIP Co de Phone Number [facility] [address] [place] [address], [place] [phone] * Parathyroid hormone intact (12/11/2024 3:25 PM EST) PTH 56.8 18.5 - 88.0 pcg/mL LAB CHEMISTRY METHOD 12/11/2024 7:55 PM EST [facility] Blood Venous blood specimen / Unknown Venipuncture / Unknown 12/11/2024 3:25 PM EST 12/11/2024 3:26 PM EST us Fabrizio Driver MD LAB BLOOD ORDERABLES Final Result Performing Organization Address City/[facility]/ZIP Co de Phone Number [facility] [address] [place] [address], [place] [phone] * (ABNORMAL) Hemoglobin A1c (12/11/2024 3:25 PM EST) Hemoglobin A1C 9.0(H) <6.5 % LAB CHEMISTRY METHOD 12/11/2024 9:19 PM [facility] Mean Bld Glu Estim. 212 mg/dL LAB CHEMISTRY METHOD 12/11/2024 9:19 PM [facility] Blood Venous blood specimen / Unknown Venipuncture / Unknown 12/11/2024 3:25 PM EST 12/11/2024 3:26 PM EST Fabrizio Driver MD LAB BLOOD ORDERABLES Final Result [facility] [address] [place] [address], [place] [phone] * (ABNORMAL) Renal function panel (12/11/2024 3:25 PM EST) [facility] Sodium 133 133 - 145 mmol/L LAB CHEMISTRY METHOD 12/11/2024 7:39 PM [facility] Potassium 3.8 3.5 - 5.5 mmol/L LAB CHEMISTRY METHOD 12/11/2024 7:39 PM [facility] Chloride 99 96 - 110 mmol/L LAB CHEMISTRY METHOD 12/11/2024 7:39 PM [facility] CO2 29 21 - 32 mmol/L LAB CHEMISTRY METHOD 12/11/2024 7:39 PM [facility] Anion Gap 5 3 - 11 LAB CHEMISTRY METHOD 12/11/2024 7:39 PM [facility] Glucose 225(H) 70 - 100 mg/dL LAB CHEMISTRY METHOD 12/11/2024 7:39 PM [facility] BUN 21 5 - 25 mg/dL LAB CHEMISTRY METHOD 12/11/2024 7:39 PM [facility] Creatinine 1.27 0.70 - 1.30 mg/dL LAB CHEMISTRY METHOD 12/11/2024 7:39 PM [facility] eGFR 61 >=60 mL/min/1. 73m2 LAB CHEMISTRY METHOD 12/11/2024 7:39 PM [facility] Comment:Calculation based on the??Chronic Kidney Disease Epidemiology Collaboration (CKD-EPI) equation refit??without adjustment for race. BUN/Creatinine Ratio 16.5 LAB CHEMISTRY METHOD 12/11/2024 7:39 PM [facility] Albumin 4.0 3.2 - 5.0 g/dL LAB CHEMISTRY METHOD 12/11/2024 7:39 PM [facility] Calcium 8.9 8.5 - 10.5 mg/dL LAB CHEMISTRY METHOD 12/11/2024 7:39 PM [facility] Phosphorus 3.0 2.5 - 4.5 mg/dL LAB CHEMISTRY METHOD 12/11/2024 7:39 PM [facility] Blood Venous blood specimen / Unknown Venipuncture / Unknown 12/11/2024 3:25 PM EST 12/11/2024 3:26 PM EST Fabrizio Driver MD LAB BLOOD ORDERABLES Final Result [facility] [address] [place] [address], * Abdominal Aortic Aneurysm Screen (11/22/2023) Pathologist [facility] Abdominal Aortic Aneurysm (AAA) Screening abstracted Anatomical Region Laterality Modality Other Historical Provider HEALTH MAINTENANCE Final Result * (ABNORMAL) Lipid panel (07/28/2022) LDL/HDL Ratio 5(A) 0 - 4 Triglycerides 248(A) 0 - 150 mg/dL Cholesterol 214(A) 0 - 200 mg/dL HDL 45 >=40 mg/dL LDL Cholesterol 120(A) 0 - 100 mg/dL Blood Venous blood specimen / Unknown us Historical Provider LAB BLOOD ORDERABLES Sandy l Result from Last 3 Months or Most Recently Relevant to Health Maintenance Insurance MEDICARE [facility] Care Teams Director Of Technology Relationship Specialty Start Date End Date Stephanie Willoughby PA 175 [facility] [address] [place] [address] PCP - General Primary Care 12/11/24
--- OUTSIDE RECORDS SUMMARY | 2025-02-06 17:54 | XMS_ITS | Encounter Summary ---
Author Organization [facility] Address [address] [place] [address] Care Team Providers Care Delinquent Account Clerk Name Role Phone Stephanie Willoughby Primary Care Provider + Reason for Referral * Consultation (Routine) - Authorized Specialty Diagnoses / Procedures Referred By Contbess t Referred To Contact Internal Medicine Diagnoses Type 2 diabetes mellitus with diabetic microalbuminuria, without long-term current use of insulin (CMS/[facility]) Stephanie Willoughby PA 175 [facility] [address] [place] [address] Phone: tel: fax: Nikkie Elizabeth, PharmD [address] [place] [address] Phone: tel: fax: Referral ID Status Reason Start Date Expiration Date Visits Requested Visits Authorized [id number] Authorized Co-Managemen t of Problem 01/19/2025 01/19/2026 1 1 Reason for Visit * Reason Onset Date Comments referral 01/19/2025 Encounter Details Date Type Department Care Team (Late st Contact Info) Description 01/19/2025 Telephone Adult Medicine [facility] [address] [place] [address] Nikkie Elizabeth, PharmD [address] [place] [address] referral Social History Tobacco Use Types Packs/Day Years [...] of this encounter Progress Notes * SAVITA Lebron - 01/19/2025 4:09 PM EST Absolutely if they are willing. Referral signed. Thank you. * Nikkie Elizabeth PharmD - 01/19/2025 2:37 PM EST Angelica Brown, Do you think this patient would benefit from more diabetes education and medication management? If so, I've pended a referral. Thank you for your time, Nikkie Elizabeth PharmD., [facility]CP Clinical Pharmacist [email or web address] P: [phone] F:[phone] documented in this encounter Plan of Treatment Upcoming Encounters Date Type Department Care Team (Late st Contact Info) Description 02/09/2025 4:00 PM EDT Office Visit Orthopedic Surgery [facility] 175 [facility] [address] [place] [address] Radha Serrano PA [address] [phone] 02/19/2025 3:00 PM EDT Office Visit Orthopedic Surgery [facility] 175 [facility] [address] [place] [address] Radha Serrano PA 174 [facility] [address] [place] [phone] 04/20/2025 1:15 PM EDT Office Visit Internal Medicine [facility] [address] [phone] Stephanie Willoughby PA [address] [address] Scheduled Referrals Name Type Priority Associated Diagnoses Order Schedule Ambulatory referral to pharmacist Outpatient Referral Routine Type 2 diabetes mellitus with diabetic microalbuminuria, without long-term current use of insulin (CMS/HCC) 1 Occurrences starting 01/19/2025 until 01/19/2026 documented as of this encounter Visit Diagnoses Diagnosis Type 2 diabetes mellitus with diabetic microalbuminuria, without long-term current use of insulin (CMS/HCC)- Primary documented in this encounter Care Teams Delinquent Account Clerk Relationship Specialty Start Date End Date Stephanie Willoughby PA [address] [address] PCP - General Primary Care 12/11/24 documented as of this encounter
--- OUTSIDE RECORDS SUMMARY | 2025-02-06 17:54 | XMS_ITS | Encounter Summary ---
Author Organization [facility] Address [id number] [place] [phone] Care Team Providers Care Hogshead Dumper Name Role Phone Stephanie Willoughby Primary Care Provider + Reason for Visit * Reason Comments Diabetes Hypertension Hyperlipidemia Benign Prostatic Hypertrophy Obesity Encounter Details Date Type Department Care Team (Late st Contact Info) Description 01/16/2025 3:00 PM EST Office Visit Internal Medicine - [place] [address] [facility] [address] [place] [phone] Stephanie Willoughby PA [address] [facility] [address] [place] [address] Type 2 diabetes mellitus with diabetic microalbuminuria, without long-term current use of insulin ([facility]) (Primary Dx); Primary hypertension; Mixed hyperlipidemia; BPH associated with nocturia; Morbid obesity with BMI of 40.0-44.9, adult ([facility]) Social History Tobacco Use Types Packs/Day Years [...] Concentration - - Weight 108 kg (238 lb 6.4 oz) 01/16/2025 2:50 PM EST Height 161.3 cm (5' 3.5 ) 01/16/2025 2:50 PM EST Body Mass Index 41.57 01/16/2025 2:50 PM EST documented in this encounter Ordered Prescriptions Prescription Sig Dispense Quantity Refills Last Filled Start Date End Date tamsulosin (FLOMAX) 0.4 mg 24 hr capsuleIndications :BPH associated with nocturia Take 2 capsules (0.8 mg total) by mouth 1 (one) time each day. Capsules should be taken 30 minutes following the same meal each day. 180 capsule 3 01/16/2025 documented in this encounter Progress Notes * SAVITA Lebron - 01/16/2025 3:00 PM EST CHIEF COMPLAINT: Diabetes, Hypertension, Hyperlipidemia, Benign Prostatic Hypertrophy, and Obesity IDENTIFIER: Marco Zavaleta is a 69 y.o. old male. HPI: Follow-up diabetes, hypertension, hyperlipidemia, BPH and obesity. He was last seen by me for follow-up 08/28/2024. Last labs (CBC, urine microalbumin, BMP, hemoglobin A1c, uric acid, PTH) on 12/11/2024. States he is compliant with his medications and denies any side effects. Diabetes is not optimally controlled on glipizide ER 5 mg daily with last hemoglobin A1c 9.0. Admits was drinking pepsi and grape soda, but recently stopped. Admits switched to vitamin water and coffee with sweet and low, which I advised stop both those. Also drinking about 4 cups milk per day and little water. Eating donuts, pastas. Was also started on jardiance 10 mg daily last month via nephro. Hypertension not optimal on amlodipine 5 mg daily, elevated 152/78 and 148/80 in the office today.Has stopped amlodipine for about a week after his last visit with me as was in good range, but restarted. Not checking bp at home, never got luís machine. No formal exercise, but walks lot at work. Hyperlipidemia is treated with atorvastatin 20 mg daily, but was not optimal with last LDL 120, triglyceride 248, HDL 45 on 07/28/2022. BPH is stable on Flomax 0.4 mg 2 tabs daily, but does still havesome symptoms of frequency, urgency and nocturia for which he is followed by urology. Also has history of left renal cell carcinoma status post nephrectomy 11/01/2020 and followed by nephrology. Morbidly obese with BMI 41.57, down 5 pounds since his last visit with me. Other Providers: Urologist Dr. Hampton - left renal cell carcinoma, BPH Agricultural Technician through [place] - hand paresthesias, left knee pain Rn Gastroenterology Dr. Lemos - left nephrectomy 11/01/[address] Alberts - right upper arm BCC Ortho Dr. De Leon - [facility] Operational Trainer - [facility] ROS: GENERAL: Negative for malaise, significant weight loss and fever RESPIRATORY: No cough, wheezing or shortness of breath CARDIOVASCULAR: No chest pain, leg swelling or palpitations SKIN: No lesions, rash or itching NEURO: No headaches or dizziness PAST MEDICAL HISTORY: Patient Active Problem List Diagnosis Date Noted Tear of biceps tendon 10/06/2024 Right carpal tunnel syndrome 05/05/2022 Trigger middle finger of right hand 05/05/2022 Carpal tunnel syndrome on both sides 08/20/2020 Renal cell carcinoma, left ([facility]) 08/12/2020 Neck pain 11/27/2019 Tear of biceps muscle 05/09/2019 Benign localized hyperplasia of prostate with urinary obstruction 07/02/2017 BPH associated with nocturia 07/02/2017 GERD (gastroesophageal reflux disease) 07/02/2017 Hyperlipidemia 07/02/2017 Hypertension 07/02/2017 Obstructive sleep apnea 07/02/2017 Type 2 diabetes mellitus without complication ([facility]) 07/02/2017 DM type 2 (diabetes mellitus, type 2) ([facility]) 07/02/2017 Arthritis 04/22/2016 Herpes simplex type 1 infection 04/22/2016 Eczema 05/30/2013 Past Surgical History: Procedure Laterality Date NEPHRECTOMY Left 11/01/2020 PROCEDURE: HISTORICAL NEPHRECTOMY; COMMENT: due renal cell carcinoma - Dr. Hampton OTHER SURGICAL HISTORY Left 08/12/2020 PROCEDURE: SD RENAL BIOPSY PRQ TROCAR/NEEDLE; COMMENT: most likely renal cell carcinoma SOCIAL HISTORY: Social History Tobacco Use Smoking status: Former Current packs/day: 0.00 Types: Cigarettes Quit date: 11/15/1999 Years since quittin.1 Smokeless tobacco: Never Substance Use Topics Alcohol use: Yes FAMILY HISTORY: Family History Problem Relation Name Age of Onset Other (Other: pancreatic cancer) Father Pancreatic cancer Father MEDICATIONS DISCONTINUED/REORDERED: Medications Discontinued During This Encounter Medication Reason tamsulosin (FLOMAX) 0.4 mg 24 hr capsule Reorder ACTIVE MEDICATIONS: Outpatient Medications Marked as Taking for the 01/16/25 encounter (Office Visit) with SAVITA Lebron Medication Sig Dispense Refill Jardiance 10 mg tablet Take 1 tablet [...] No Known Allergies PHYSICAL EXAM: Visit Vitals BP (!) 148/80 (BP Location: Right arm, Patient Position: Sitting, BP Cuff Size: Adult) Pulse 76 Temp 36.7 ??C (98 ??F) (Temporal) Ht 1.613 m (63.5 ) Wt 108 kg (238 lb 6.4 oz) SpO2 98% BMI 41.57 kg/m?? Smoking Status Former BSA 2.09 m?? APPEARANCE: Alert and in no acute distress EYES: Conjunctiva and sclera normal. HEART: RRR + mumur LUNG: clear to auscultation bilaterally ABDOMEN: Obese EXTREMITIES: No edema NEURO: Awake, alert and oriented x 3 SKIN: Skin color normal. Warm and dry. LABS: Appointment on 12/11/2024 Component Date Value Ref Range Status Hemoglobin A1C 12/11/2024 9.0 (H) <6.5 % Final Mean Bld Glu Estim. 12/11/2024 212 mg/dL Final WBC 12/11/2024 8.7 4.8 - 10.8 K/mcL Final RBC 12/11/2024 5.50 4.50 - 5.50 M/mcL Final Hemoglobin 12/11/2024 14.9 13.5 - 17.5 g/dL Final Hematocrit 12/11/2024 45.0 42.0 - 54.0 % Final MCV 12/11/2024 82.6 79.0 - 98.0 FL Final MCH 12/11/2024 27.3 27.0 - 32.0 pcg Final MCHC 12/11/2024 33.1 32.0 - 37.0 g/dL Final RDW 12/11/2024 12.3 11.0 - 15.0 % Final Platelets 12/11/2024 207 130 - 400 K/mcL Final MPV 12/11/2024 9.8 7.0 - 11.0 FL Final NRBC 12/11/2024 0.0 <1.0 % Final NRBC Absolute 12/11/2024 0.00 <0.10 K/mcL Final PTH 12/11/2024 56.8 18.5 - 88.0 pcg/mL Final Sodium 12/11/2024 133 133 - 145 mmol/L Final Potassium 12/11/2024 3.8 3.5 - 5.5 mmol/L Final Chloride 12/11/2024 99 96 - 110 mmol/L Final CO2 12/11/2024 29 21 - 32 mmol/L Final Anion Gap 12/11/2024 5 3 - 11 Final Glucose 12/11/2024 225 (H) 70 - 100 mg/dL Final BUN 12/11/2024 21 5 - 25 mg/dL Final Creatinine 12/11/2024 1.27 0.70 - 1.30 mg/dL Final eGFR 12/11/2024 61 >=60 mL/min/1.73m2 Final Calculation based on the Chronic Kidney Disease Epidemiology Collaboration (CKD- EPI) equation refitwithout adjustment for race. BUN/Creatinine Ratio 12/11/2024 16.5 Final Albumin 12/11/2024 4.0 3.2 - 5.0 g/dL Final Calcium 12/11/2024 8.9 8.5 - 10.5 mg/dL Final Phosphorus 12/11/2024 3.0 2.5 - 4.5 mg/dL Final Uric Acid 12/11/2024 3.7 3.7 - 9.2 mg/dL Final Protein, Urine 12/11/2024 32 mg/dL Final Prot/Creat, Ur 12/11/2024 0.22 (H) <=0.20 mg/mg creat Final Creatinine, Urine 12/11/2024 143.0 mg/dL Final Creatinine, Urine 12/11/2024 143.0 mg/dL Final Microalb, Ur 12/11/2024 62.1 (H) 0.0 - 29.0 mg/L Final Microalb/Creat Ratio 12/11/2024 43 (H) <30 mg/g creat Final Vit D, 25-Hydroxy 12/11/2024 18.7 (L) 30.0 - 80.0 ng/mL Final Abstract on 10/06/2024 Component Date Value Ref Range Status Abdominal Aortic Aneurysm (AAA)* 11/22/2023 abstracted Final Annual BMP Blood Test 07/28/2022 abstracted Final Urine Albumin Creatinine Ratio 07/28/2022 abstracted Final LDL/HDL Ratio 07/28/2022 5 (A) 0 - 4 Final Triglycerides 07/28/2022 248 (A) 0 - 150 mg/dL Final Cholesterol 07/28/2022 214 (A) 0 - 200 mg/dL Final HDL 07/28/2022 45 >=40 mg/dL Final LDL Cholesterol 07/28/2022 120 (A) 0 - 100 mg/dL Final Hemoglobin A1C 07/28/2022 8.3 (A) <=6.5 % Final Medication and lab orders: No orders of the defined types were placed in this encounter. Other orders: None IMAGING: IMPRESSION: 1. Type 2 diabetes mellitus with diabetic microalbuminuria, without long-term current use of insulin ([facility]) 2. Primary hypertension 3. Mixed hyperlipidemia 4. BPH associated with nocturia 5. Morbid obesity with BMI of 40.0-44.9, adult ([facility]) PLAN: 1. DM type II with microalbuminuria, without long-term use insulin. Not optimal for last [id number]. Had a very long discussion about diet, exercise, weight reduction. He was started on Jardiancelast month by nephro which she will continue along with glipizide. Plan to recheck labs next visit. 2. Hypertension. Not optimal in the office. Continue with amlodipine 5 mg daily, advised home bloodpressure monitoring, lifestyle changes and call if running greater than 140/90. 3. Hyperlipidemia. Not optimal per last lipids. Continue atorvastatin 20 mg daily along with diet and exercise and plan to repeat fasting lipids in the near future. 4. BPH with nocturia. Mostly stable on Flomax 0.4 mg 2 tabs daily and followed by urology. 5. Morbid obesity. Diet and exercise discussed and encouraged for weight loss. Follow-up 3 months. Call sooner if needed. SAVITA Lebron on 01/16/2025 at 4:55 PM EST documented in this encounter Plan of Treatment Upcoming Encounters Date Type Department Care Team (Late st Contact Info) Description 02/09/2025 4:00 PM EDT Office Visit Orthopedic Surgery - [place] [address] [facility] [address] [place] [phone] Radha Serrano PA [address] [facility] [address] [place] [phone] 02/19/2025 3:00 PM EDT Office Visit Orthopedic Surgery [facility] [address] [facility] [address] [place] [phone] Radha Serrano PA [address] [facility] [address] [place] [phone] 04/20/2025 1:15 PM EDT Office Visit Internal Medicine [facility] [address] [facility] [address] [place] [phone] Stephanie Willoughby PA [address] [facility] [address] [place] [address] documented as of this encounter Visit Diagnoses Diagnosis Type 2 diabetes mellitus with diabetic microalbuminuria, without long-term current use of insulin ([facility])- Primary Primary hypertension Unspecified essential hypertension Mixed hyperlipidemia BPH associated with nocturia Morbid obesity with BMI of 40.0-44.9, adult ([facility]) documented in this encounter Discontinued Medications Medication Sig Discontinue Reason Start Date End Da te tamsulosin (FLOMAX) 0.4 mg 24 hr capsule Take 1 Capsule by mouth daily. Take 30 mins after same meal every day. Reorder 07/26/2024 01/16/2025 documented as of this encounter Historical Medications * This list may reflect changes made after this encounter. Vitamin D3 50 mcg (2,000 unit) capsule Take 1 capsule (2,000 Units total) by mouth 1 (one) time each day. 12/28/2024 Jardiance 10 mg tablet Take 1 tablet (10 mg total) by mouth 1 (one) time each day. 12/27/2024 added in this encounter Care Teams Hogshead Dumper Relationship Specialty Start Date End Date Stephanie Willoughby PA [address] [place] [address] PCP - General Primary Care 12/11/24 documented as of this encounter
== END 2025-02-06 16:31 | disposition home or self-care (01) ==
LOC: HO.HSMS 14:18
PROVIDERS: PCP Physician Assistant; Visit Provider Physician Assistant Medical
DX: R41.3 Other amnesia (principal)
CPT/HCPCS: 99204; G2211

== ENCOUNTER → 2025-02-06 14:18 | Outpatient (BNVA) | payer MEDICARE, SELFPAY | PROVIDERS: PCP Physician Assistant; Visit Provider Physician Assistant Medical | DX: R41.3 Other amnesia (principal) | CPT/HCPCS: 99202 ==

== ENCOUNTER 2025-05-09 14:38 | Outpatient (AMB) | payer MEDICARE, SELFPAY ==
[2025-05-09 14:46] VITALS: BP 128/60; PULSE 80; O2SAT 93; BMI 38.7
--- NOTE | 2025-05-09 14:46 | HO.NEPHOV_ITS ---
Vital Signs 05/09/25 14:46 Height 5 ft 6 in Weight 240 lb BMI 38.7 BP 128/60 Blood Pressure Location Lt brachial Position Sitting Pulse 80 Pulse Source Pulse Oximeter Pulse Oximetry (%) 93 Oxygen Delivery Method Room Air Intake Visit Reasons: Hypertension-Conf Perl Programmer Required: No Accompanied by: Self / Same As Patient Allergies No Known Allergies Allergy (Verified 05/09/25 14:48) Do you need a note to return to daycare/school/sports/work: No HPI Comments Details: I had the privilege of seeing Andrés in follow up of his acquired solitary kidney ( had left nephrectomy in 2019) on a back drop of hypertension and diabetes mellitus. His blood pressure is at goal on current medications. He has lost some weight. He is not on Jardiance but not on any ACEI/ARB. He tries to maintain good hydration and avoids NSAID's if possible. He denies nausea, vomiting, diarrhea, SOB or edema. His last A1c has improved from 9.0 to 7.2 with some proteinuria . His last serum creatinine was 1.4. There were no specific systemic complaints at the time of this office visit. [facility] Surgical History History of nephrectomy Family History Father Pancreatic cancer Social History Alcohol intake: current Patient Tobacco Use Status: Former Tobacco user Cigarette Packs Per Day: 0.50 Review of Systems Const All systems reviewed & are unremarkable except as noted in HPI and below Physical Exam Vital Signs: Last Vital Signs Pulse 80 05/09/25 14:46 BP 128/60 05/09/25 14:46 Pulse Ox 93 05/09/25 14:46 Oxygen Delivery Method Room Air 05/09/25 14:46 BMI result Body Mass Index 38.7 Const General: comfortable and no acute distress Orientation/consciousness: patient oriented x3 HEENT Head: Yes normocephalic Mouth: Normal oral and palatal mucosa present Eyes EOM: EOMs intact bilaterally Neck Neck: Yes supple Resp Auscultation: clear to auscultation bilaterally Cardio Jugular venous distension: no JVD Rate: regular rate GI Palpation (GI): Soft to palpation Auscultation: normal bowel sounds General: Yes no CVA tenderness Back/Spine/Pelvis Back: no CVA tenderness Skin General skin exam: no rashes or lesions noted Neuro General: patient oriented x3 and moves all extremities Extrem General: Yes no pedal edema Results Reviewed Nephrology Results: Hgb, (14.0-18.0) 15.1 g/dl 10/13/22 WBC, (4.8-10.8) 7.4 X10*3/uL 10/13/22 Plt Count, (160-400) 196 X10*3/uL 10/13/22 Sodium, (135-145) 137 mmol/L 10/13/22 Potassium, (3.3-5.1) 4.7 mmol/L 10/13/22 Chloride, (96-108) 102 mmol/L 10/13/22 Carbon Dioxide, (22-29) 27 mmol/L 10/13/22 BUN, (9-16) 20 mg/dL H 10/13/22 Creatinine, (0.5-1.4) 1.31 mg/dL 10/13/22 Calcium, (8.4-10.2) 9.5 mg/dL 10/13/22 Urine Protein, (NEG - TRACE) NEGATIVE MG/DL 03/22/19 Assessment & Plan Assessment & Plan (1) HTN (hypertension): Code(s): I10 - Essential (primary) hypertension Category: Medical Qualifiers: Hypertension type: primary hypertension Qualified Code(s): I10 - Essential (primary) hypertension (2) Solitary kidney, acquired: Code(s): Z90.5 - Acquired absence of kidney Category: Medical (3) Proteinuria: Code(s): R80.9 - Proteinuria, unspecified Category: Medical Qualifiers: Proteinuria type: other Qualified Code(s): R80.8 - Other proteinuria Plan He has acquired solitary kidney following nephrectomy in 2020. He needs to loose weight and needs to have better blood sugar control. He is not on any ACEI/ARB. He is at risk for hyperfiltration. He should continue on current dose of Jardiance which I plan to maximize with time. If his serum creatinine and K permits and if there are no other contraindication, I plan to start him on ACEI . He should maintain good hydration and avoid NSAID's. Follow up blood work ordered. Orders: Orders Creatinine 4 Months I10 - Essential (primary) hypertension, R80.8 - Other proteinuria, Z90.5 - Acquired absence of kidney Protein Creatinine Ratio, Ur 4 Months I10 - Essential (primary) hypertension, R80.8 - Other proteinuria, Z90.5 - Acquired absence of kidney Blood Urea Nitrogen 4 Months I10 - Essential (primary) hypertension, R80.8 - Other proteinuria, Z90.5 - Acquired absence of kidney Electrolytes 4 Months I10 - Essential (primary) hypertension, R80.8 - Other proteinuria, Z90.5 - Acquired absence of kidney Medications: Refilled empagliflozin (Jardiance) 10 mg PO DAILY 30 tabs 11RF Coding Level of Care Code Est Pt Level 4 (05605) Diagnoses Primary hypertension I10 Hypertension type: primary hypertension Solitary kidney, acquired Z90.5 Other proteinuria R80.8 Proteinuria type: other
--- OUTSIDE RECORDS SUMMARY | 2025-05-09 17:31 | XMS_ITS | Encounter Summary ---
Author Organization [facility] Address [address] [facility] [address] [place] [phone] Phone Care Team Providers Care Dust Collector Attendant Name Role Phone Stephanie Willoguhby PA-C Primary Care Provider + Reason for Visit * Reason Comments Med Refill Encounter Details Date Type Department Care Team ([facility] st Contact Info) Description 05/14/2024 Refill [facility] [address] [facility] [address] [place] [phone] Fabrizio Driver MD [id number] [facility] [address] [place] [phone] Hypertension; Acquired absence of kidney Social History [...] kidney documented in this encounter Care Teams Dust Collector Attendant Relationship Specialty Start Date End Date Stephanie Willoughby PA-C [address] [place] [address] PCP - General Physician Copy Room Technician 01/09/21 documented as of this encounter
== END 2025-05-09 15:04 | disposition home or self-care (01) ==
LOC: HO.HKA 14:39
PROVIDERS: PCP Physician Assistant; Visit Provider Internal Medicine Nephrology
DX: I10 Essential (primary) hypertension (principal); Z90.5 Acquired absence of kidney; R80.8 Other proteinuria
CPT/HCPCS: 99214

== ENCOUNTER → 2025-05-09 14:38 | Outpatient (BNVA) | payer MEDICARE, SELFPAY | PROVIDERS: PCP Physician Assistant; Visit Provider Internal Medicine Nephrology | DX: I10 Essential (primary) hypertension (principal); R80.8 Other proteinuria; Z90.5 Acquired absence of kidney | CPT/HCPCS: 99212 ==